=== PATIENT | female | born 1955 | race Caucasian/White ===

== ENCOUNTER 2019-10-13 00:32 | Day surgery (SDC) | payer MEDICARE, OTHER, SELFPAY ==
[2019-10-10 15:56] VITALS: BMI 38.7
--- NOTE | 2019-10-13 10:20 | PM.IMHP ---
H&P: HPI History of Present Illness Chief complaint: diarrhea Narrative: iAram Dela Cruz is a 64 year old female presents today for colonoscopy. Patient reports diarrhea around 30 minutes to 1 hour after eating breakfast. She reports her stools are around 5-6 on the bristol stool scale. She has had CT scan done a few years ago and suggested colitis. She denies any abdominal pains, rectal pains, melena, or hematochezia. Denies any upper GI symptoms. Denies family hx of GI maligancies or IBD. Last colonoscopy was in [address] Thomson and had diverticulosis and hemorrhoids. She also had EGD at that time that was normal. [facility] Past Medical History Medical History (Updated 10/13/19 @ 10:36 by Carmelita Hewitt, RENDERER) Diabetes Dyslipidemia Gout Hypertension Hypomagnesemia Hypothyroid CAMERON (iron deficiency anemia) Surgical History Surgical History (Updated 10/13/19 @ 10:36 by Carmelita Hewitt, RENDERER) History of bunionectomy Hx of bilateral hip replacements Hx of carpal tunnel repair Hx of section Hx of cholecystectomy Hx of colonoscopy Hx of esophagogastroduodenoscopy Family History Family History (Updated 10/13/19 @ 10:37 by Carmelita Hewitt, RENDERER) Mother Uterine cancer Leukemia Hypertension Father Acute myocardial infarction Social History Social History (Updated 10/13/19 @ 10:38 by Carmelita Hewitt, RENDERER) Smoking packs per day: 0.25 Smoking cigarettes per day: 5.0 Years smoked: 2 Smoking pack-years: 0.50 Smoking status: Former smoker Tobacco type: cigarettes Alcohol intake: current Alcohol use details: socially Substance use: never Meds Home Medications and Allergies Home Medications Medication Instructions Recorded Confirmed Type allopurinol 100 mg PO DAILY 10/10/19 10/10/19 History aspirin 81 mg PO DAILY 10/10/19 10/10/19 History atorvastatin 20 mg PO DAILY 10/10/19 10/10/19 History carvedilol 25 mg PO BID 10/10/19 10/10/19 History levothyroxine 50 mcg PO DAILY 10/10/19 10/10/19 History magnesium 400 mg PO DAILY 10/10/19 10/10/19 History metformin 1,000 mg PO DAILY 10/10/19 10/10/19 History Allergies Allergy/AdvReac Type Severity Reaction Status Date / Time meloxicam Allergy Unknown SWELLING Verified 10/13/19 10:20 OF FEET metaxalone Allergy Unknown FACIAL Verified 10/13/19 10:20 SWELLING cyclobenzaprine AdvReac Unknown COGNITIVE Verified 10/13/19 10:20 DEFECT simvastatin AdvReac Unknown MYALGIA Verified 10/13/19 10:20 Exam Const: General: cooperative, healthy appearing, comfortable, alert and awake Nutritional Appearance: average body habitus Orientation/consciousness: oriented to person, oriented to place, oriented to time and patient oriented x3 Limitations: no limitations HENMT: Head: normal to inspection and normocephalic Mouth: Yes Normal oral and palatal mucosa present and Yes moist mucous membranes Neck: Neck: normal visual inspection, supple and no JVD Carotids: no bruits Resp: Effort & Inspection: normal respiratory effort and no respiratory distress Auscultation: clear to auscultation bilaterally Cardio: Rate: regular rate Rhythm: regular rhythm Heart sounds: S1 normal heart sound present, S2 normal heart sound present, no gallops, no murmurs and no rubs GI: Inspection: normal to inspection and obesity GI Palp: No abdominal tenderness and No No hepatosplenomegaly present Percussion: Yes normal to percussion Auscultation: normal bowel sounds Rectal Exam: deferred Skin: General skin exam: normal color Lesions: no lesions Rashes: no rashes Neuro: General: oriented to person, oriented to place, oriented to time, patient oriented x3 and moves all extremities Cognition (Neuro): normal cognition Speech: normal speech Gait exam (Neuro): Normal gait present Extrem: General: normal to inspection Psych: Appearance: grossly normal Mental Status: mental status grossly normal Speech and movement: Normal speech and mo
[2019-10-13 10:21] VITALS: BP 136/89; PULSE 77; RESP 16; TEMP 36.4; O2SAT 98
[2019-10-13] MEDS: LACTATED RINGERS 1,000 ML 150 ML IV CONT (10:31)
[2019-10-13 10:46] LABS: Glucose Point of Care 116 (65-105)
--- NOTE | 2019-10-13 11:01 | WPDANESEPPF ---
Anes - Initial Pre Proc Eval Procedure: Operation Date: 10/13/19 11:00 Proposed Procedures p Colonoscopy - Miki Stephenson DO Date/Time: 10/13/19 11:01 Surgeon: Miki Stephenson DO Pre Op Diagnosis: diarrhea Patient Data Age: 64 Gender: F Height: 5 ft 6 in Weight: 107.9 kg Last Vital Signs Temp 97.6 F 10/13/19 10:21 Pulse 77 10/13/19 10:21 Resp 16 10/13/19 10:21 BP 136/89 10/13/19 10:21 Pulse Ox 98 10/13/19 10:21 Allergies Allergy/AdvReac Type Severity Reaction Status Date / Time meloxicam Allergy Unknown SWELLING Verified 10/13/19 10:20 OF FEET metaxalone Allergy Unknown FACIAL Verified 10/13/19 10:20 SWELLING cyclobenzaprine AdvReac Unknown COGNITIVE Verified 10/13/19 10:20 DEFECT simvastatin AdvReac Unknown MYALGIA Verified 10/13/19 10:20 Home Medications Medication Instructions Recorded Confirmed Type allopurinol 100 mg PO DAILY 10/10/19 10/10/19 History aspirin 81 mg PO DAILY 10/10/19 10/10/19 History atorvastatin 20 mg PO DAILY 10/10/19 10/10/19 History carvedilol 25 mg PO BID 10/10/19 10/13/19 History levothyroxine 50 mcg PO DAILY 10/10/19 10/10/19 History magnesium 400 mg PO DAILY 10/10/19 10/13/19 History metformin 1,000 mg PO DAILY 10/10/19 10/13/19 History Laboratory Tests 10/13/19 10:34 POC Capillary Glucose 116 mg/dl H mg/dl (65-105) Patient hx anesthesia problems: none Family hx anesthesia problems: none PMFSH Past Medical History Medical History (Updated 10/13/19 @ 10:36 by Carmelita Hewitt, METAL SPONGE MAKING MACHINE OPERATOR) Diabetes Dyslipidemia Gout Hypertension Hypomagnesemia Hypothyroid CAMERON (iron deficiency anemia) Surgical History Surgical History (Updated 10/13/19 @ 10:36 by Carmelita Hewitt, METAL SPONGE MAKING MACHINE OPERATOR) History of bunionectomy Hx of bilateral hip replacements Hx of carpal tunnel repair Hx of section Hx of cholecystectomy Hx of colonoscopy Hx of esophagogastroduodenoscopy Family History Family History (Updated 10/13/19 @ 10:37 by Carmelita Hewitt, METAL SPONGE MAKING MACHINE OPERATOR) Mother Uterine cancer Leukemia Hypertension Father Acute myocardial infarction Social History Social History (Updated 10/13/19 @ 10:38 by Carmelita Hewitt, METAL SPONGE MAKING MACHINE OPERATOR) Smoking packs per day: 0.25 Smoking cigarettes per day: 5.0 Years smoked: 2 Smoking pack-years: 0.50 Smoking status: Former smoker Tobacco type: cigarettes Alcohol intake: current Alcohol use details: socially Substance use: never Anes - Eval Final PreProcedure Day of Procedure 10/13/19 11:01 Patient weight: obese Heart: regular rate and rhythm Lungs: clear to auscultation Airway: Mallampati scale class III Neurological: alert and oriented Last oral intake: >/= 8 hours ASA classification: III Emergent: no Anesthetic plan: proceed Anesthesia type and monitoring: general GIVS and standard monitoring Informed Consent: The patient's anesthetic plan and its attendant risks and benefits were discussed with the patient/family/POA. Questions were solicited and answers provided to the satisfaction of the patient/family/POA.
[2019-10-13 11:38] VITALS: BP 111/54; PULSE 79; RESP 22; O2SAT 95
[2019-10-13 11:48] VITALS: BP 103/55; PULSE 79; RESP 17; O2SAT 95
[2019-10-13 11:58] VITALS: BP 121/61; PULSE 69; RESP 15; O2SAT 98
== END 2019-10-13 12:17 | disposition home or self-care (01) ==
PROVIDERS: PCP Internal Medicine; Visit Provider Internal Medicine Gastroenterology
PROC: 0DJD8ZZ Inspection of Lower Intestinal Tract, Via Natural or Artificial Opening Endoscopic (ICD-10-PCS; CPT 45378; principal; 2019-10-13 11:00)
DX: R19.7 Diarrhea, unspecified (principal); K63.5 Polyp of colon; K64.8 Other hemorrhoids; K57.30 Diverticulosis of large intestine without perforation or abscess without bleeding; I10 Essential (primary) hypertension; E78.5 Hyperlipidemia, unspecified; E11.9 Type 2 diabetes mellitus without complications; E03.9 Hypothyroidism, unspecified; D50.9 Iron deficiency anemia, unspecified; M10.9 Gout, unspecified; Z87.891 Personal history of nicotine dependence; Z79.84 Long term (current) use of oral hypoglycemic drugs; Z79.82 Long term (current) use of aspirin; E66.9 Obesity, unspecified; Z68.38 Body mass index [BMI] 38.0-38.9, adult
CPT/HCPCS: 45385; 45380; 88305; J2704; J7120

== ENCOUNTER 2020-12-07 10:15 | Outpatient (CLI) | payer MEDICARE, OTHER, SELFPAY ==
--- NOTE | ~2020-12-07 | XR_ITS ---
EXAMINATION: XR shoulder LT min 2V DATE: 12/07/2020 10:56 INDICATION: Left shoulder pain. TECHNIQUE: 5 views of left shoulder were obtained. COMPARISON: None. FINDINGS: There is superior subluxation of humeral head with narrowing of the subacromial space and a n remodeling of the undersurface of the acromion, consistent with chronic rotator cuff tear with cuff arthropathy. There is severe osteoarthritis of glenohumeral joint and moderate osteoarthritis of acr omioclavicular joint. A calcified left lung nodule and calcified left hilar lymph nodes are consisten t with old granulomatous disease. IMPRESSION: 1. Polyarticular osteoarthritis. 2. Chronic left rotator cuff tear with cuff arthropathy. Reviewed, dictated and finalized at location A.
--- NOTE | ~2020-12-07 | XR_ITS ---
EXAMINATION: XR_CERV2-3V_CR EXAM DATE: 12/07/2020 10:55 INDICATION: Left shoulder pain. Left cervical pain. TECHNIQUE: Cervical spine frontal, lateral, lateral swimmers, and open-mouth odontoid projections. There is no prior study for comparison. FINDINGS: There is moderate disc disease at C5-6 with 2-3 mm anterolisthesis. Moderate disc disease at C7-T1 also with 2-3 mm of anterolisthesis. Mild to moderate disc disease at C6-7 and mild at C4-5. Severe cervical arthropathy, with largest bulky facet joint to left C4-5 level. The odontoid process is intact. The lateral masses of C1 line up with C2. Prevertebral soft tissue and pre-dens space ar e within normal limits. Lung apices are unremarkable. IMPRESSION: 1. Severe cervical arthropathy. Reviewed, dictated and finalized at location A.
[2020-12-07 10:32] LABS: Basophils Absolute Auto 0.05 K/mm3 (0.00-0.10); Basophils Percent Auto 0.8 % (0.0-1.0); Eosinophils Percent Auto 4.8 % (1.0-6.0); Hematocrit 35.3 % (35.0-42.0); Hemoglobin 11.5 g/dL (11.7-13.8); Immature Granulocyte Absolute 0.02 K/mm3 (0.00-0.00); Immature Granulocyte Percent A 0.3 % (0.0-0.0); Lymphocytes Absolute Auto 1.57 K/mm3 (1.10-4.50); Lymphocytes Percent Auto 25.4 % (18.0-42.0); Mean Corpuscular HGB Conc 32.6 g/dL (32.0-36.0); Mean Corpuscular Hemoglobin 28.7 pg (27.0-31.0); Mean Platelet Volume 8.9 fl (9.2-11.8); Monocytes Absolute Auto 0.62 K/mm3 (0.10-0.90); Neutrophils Absolute Auto 3.6 K/mm3 (1.7-7.2); Neutrophils Percent Auto 58.7 % (50.0-70.0); Platelet Count Result 226 K/mm3 (150-420); Red Blood Count 4.01 M/mm3 (4.20-5.40); Red Cell Distribution Width 13.6 % (11.6-14.4); White Blood Count 6.2 K/mm3 (4.8-10.8)
[2020-12-07 11:12] LABS: Alanine Aminotransferase 26 U/L (14-59); Albumin Level 4.2 g/dL (3.4-5.0); Alkaline Phosphatase 53 U/L (46-116); Anion Gap 4 mmol/L (8-16); Aspartate Amino Transferase 12 U/L (15-37); Bilirubin,Total 0.5 mg/dL (0.00-1.00); Blood Urea Nitrogen 27 mg/dL (7-18); CRP 0.8 mg/dL (0.0-0.9); Calcium 10.2 mg/dL (8.5-10.1); Carbon Dioxide 31 mmol/L (21-32); Chloride 102 mmol/L (98-108); Estimated Glomerular Filt Rate 52; Glucose 106 mg/dL (70-99); Osmolality Calculated 289 mOsm/kg (285-295); Potassium 4.8 mmol/L (3.5-5.1); Sodium 137 mmol/L (136-145); Total Protein 7.5 g/dL (6.4-8.2); Uric Acid 7.2 mg/dL (2.6-6.0)
== END 2020-12-07 10:16 | disposition home or self-care (01) ==
LOC: CHSLAB 10:17
PROVIDERS: PCP Nurse Practitioner Family; Visit Provider Nurse Practitioner Family
DX: M25.512 Pain in left shoulder (principal); M25.50 Pain in unspecified joint
CPT/HCPCS: 36415; 72040; 73030; 80053; 84550; 85025; 86140

== ENCOUNTER 2021-01-08 13:00 | Outpatient (RCR) | payer MEDICARE, OTHER, SELFPAY ==
--- NOTE | 2021-01-08 14:11 | PTOPEVAL ---
Thank you for referring Airam Dela Cruz to [facility].? The patient is scheduled to be seen for therapy? ____x/week for ___ weeks. Please review, sign, date and return this plan of care JOSEPH. I agree with and certify that the following plan of care is medically necessary. Referring Physician Date Admitting Provider: Attending Provider: Steven John, Referring Provider: *PT Outpatient Evaluation Start: 01/08/21 13:03 Freq: Status: Active Protocol: Document 01/08/21 13:03 ACR (Rec: 01/08/21 14:11 [id number]) Therapy Assessment Status Assessment Status Assessment Status Evaluation Outpatient Past Medical History Neurological History Hx Neurological Disorders No Significant History Cardiovascular History Hx Cardiac Disorders No Significant History Respiratory History Hx Respiratory Disorders No Significant History Gastrointestinal History Hx Gall Bladder Disease Yes Musculoskeletal History Hx Arthritis Yes Hx Gout Yes Hx Joint Replacement Yes: bilateral hips Hematological History Hx Hematological Disorders No Significant History Endocrine History Hx Diabetes Yes HEENT History Hx HEENT Disorders No Significant History Integumentary History Hx Shingles Yes Reproductive History Hx Reproductive Disorders No Significant History Psychosocial History Hx Psychiatric Disorders No Significant History Pain History History of Any Previous or Ongoing No Significant History Instance of Pain Anesthesia History Hx Anesthesia Reactions No Significant History Evaluation Information Problem Diagnosis LBP Onset 01/01/21 Subjective Information Patient states that she has Query Text:As Reported By Patient/ had back pain for several Family years, but it has flared up quite a bit lately. She states she went to pain management who gave her a back brace and is getting an MRI on 01/10/21. Patient states that the pain is through the anterior thigh. Patient states that standing up from a prolonged sitting position is difficult, walking for prolonged periods of time , standing for a period time are also difficult. Patient is on a muscle relaxer and is taking it at night only because they knock her out.
--- NOTE | 2021-02-12 17:06 | PTOPEVAL ---
Thank you for referring Airam Dela Cruz to [facility].? The patient is scheduled to be seen for therapy? ____x/week for ___ weeks. Please review, sign, date and return this plan of care JOSEPH. I agree with and certify that the following plan of care is medically necessary. Referring Physician Date Admitting Provider: Attending Provider: Steven John, Referring Provider: *PT Outpatient Evaluation Start: 01/08/21 13:03 Freq: Status: Active Protocol: Document 02/12/21 15:06 ACR (Rec: 02/12/21 16:07 ACR [id number]) Therapy Assessment Status Assessment Status Assessment Status Re-evaluation Outpatient Past Medical History Neurological History Hx Neurological Disorders No Significant History Cardiovascular History Hx Cardiac Disorders No Significant History Respiratory History Hx Respiratory Disorders No Significant History Gastrointestinal History Hx Gall Bladder Disease Yes Musculoskeletal History Hx Arthritis Yes Hx Gout Yes Hx Joint Replacement Yes: bilateral hips Hematological History Hx Hematological Disorders No Significant History Endocrine History Hx Diabetes Yes HEENT History Hx HEENT Disorders No Significant History Integumentary History Hx Shingles Yes Reproductive History Hx Reproductive Disorders No Significant History Psychosocial History Hx Psychiatric Disorders No Significant History Pain History History of Any Previous or Ongoing No Significant History Instance of Pain Anesthesia History Hx Anesthesia Reactions No Significant History Evaluation Information Problem Diagnosis LBP and B knee pain Onset 01/01/21 Subjective Information Patient reports that her back Query Text:As Reported By Patient/ is so much better and is Family feeling more confident with holding her new grandchild while standing and walking. She states she is able to do everything she needs to do and her back does not bother her. She states she has not taken any muscle relaxers in awhile but will occasionally take a tylenol but that is for her knees. Patient states her knees have been bothering her for quite some time and she is trying to avoid surgery. She states she begins 5 weeks of injections
== END 2021-03-22 17:32 | disposition home or self-care (01) ==
LOC: CHSPT 13:00
PROVIDERS: PCP Internal Medicine; Visit Provider Anesthesiology Pain Medicine
DX: M54.5 Low back pain (principal); M25.562 Pain in left knee; M25.561 Pain in right knee; M19.90 Unspecified osteoarthritis, unspecified site
CPT/HCPCS: 97014; 97110; 97112; 97161; 97164; 97530; G0283

== ENCOUNTER → 2021-01-10 10:43 | Outpatient (CLI) | payer MEDICARE, OTHER, SELFPAY ==
--- NOTE | ~2021-01-10 | MR_ITS ---
EXAMINATION: MR lumbar spine wo con DATE: 01/10/2021 11:22 INDICATION: Lumbago. TECHNIQUE: Magnetic resonance imaging (MRI) of the lumbar spine was performed without intravenous con trast. Sequences included sagittal T2-weighted FSE, sagittal T2-weighted FS FSE, sagittal T1-weighted FSE, and axial T2-weighted FSE. COMPARISON: Lumbar spine radiographs 09/10/2017 FINDINGS: There is 18 degrees levoscoliosis of lumbar spine. There is 3 mm anterolisthesis of L4 on L 5. Vertebral body heights are normal. There is severely decreased disc height at T11-T12, L2-L3, and L3-L4 and mildly decreased disc height at L4-L5 and L5-S1 with endplate remodeling. The distal spinal cord signal intensity is normal. The conus medullaris is at L1-L2. The following disc levels are spe cifically discussed: L1-L2: The disc does not extend beyond the endplate margin. There is severe right and moderate left f acet joint osteoarthritis. There is mild right neural foraminal stenosis. There is no central canal s tenosis. L2-L3: The disc is bulging and has an annular fissure. There is severe bilateral facet joint osteoart hritis. There is moderate right and mild left neural foraminal stenosis. There is mild central canal stenosis. L3-L4: The disc is bulging and has an annular fissure. There is severe bilateral facet joint osteoart hritis. There is moderate bilateral neural foraminal stenosis. There is moderate central canal stenos is. L4-L5: The disc is bulging and has an annular fissure. There is severe bilateral facet joint osteoart hritis. There is mild bilateral neural foraminal stenosis. There is mild central canal stenosis. L5-S1: The disc is bulging and has an annular fissure. There is moderate right and severe left facet joint osteoarthritis. There is mild bilateral neural foraminal stenosis. There is mild central canal stenosis. IMPRESSION: 1. Severe lumbar spondylosis. 2. Lumbar levoscoliosis. Reviewed, dictated and finalized at location B.
== END ==
PROVIDERS: PCP Internal Medicine; Visit Provider Anesthesiology Pain Medicine
DX: M54.5 Low back pain (principal); M47.816 Spondylosis without myelopathy or radiculopathy, lumbar region; M41.86 Other forms of scoliosis, lumbar region
CPT/HCPCS: 72148

== ENCOUNTER 2022-05-06 13:48 | Outpatient (CLI) | payer MEDICARE, SELFPAY ==
[2022-05-06 15:19] LABS: Basophils Absolute Auto 0.1 K/mm3 (0.0-0.1); Basophils Percent Auto 0.5 % (0.2-1.2); Eosinophils Absolute Auto 0.2 K/mm3 (0-0.3); Eosinophils Percent Auto 2.1 % (0-4.4); Hematocrit 34.9 % (37.0-47.0); Hemoglobin 11.2 g/dL (12.0-15.0); Immature Granulocyte Absolute 0.04 K/mm3 (0.00-0.031); Immature Granulocyte Percent A 0.3 % (0-0.5); Lymphocytes Absolute Auto 2.31 K/mm3 (0.9-3.2); Lymphocytes Percent Auto 19.8 % (18.3-44.2); Mean Corpuscular HGB Conc 32.1 g/dl (32-36); Mean Corpuscular Hemoglobin 28.5 pg (26-34); Mean Corpuscular Volume 88.8 fl (80-100); Monocytes Absolute Auto 1.1 K/mm3 (0.1-0.6); Monocytes Percent Auto 9.8 % (2.6-8.5); Neutrophils Absolute Auto 7.9 K/mm3 (1.3-6.7); Neutrophils Percent Auto 67.5 % (45.5-73.1); Platelet Count Result 382 k/mm3 (150-375); Red Blood Count 3.93 M/mm3 (4.2-5.4); White Blood Count 11.7 K/mm3 (4.5-10.0)
[2022-05-06 15:27] LABS: Urine Cotinine NEGATIVE
[2022-05-06 15:31] LABS: Albumin Level 4.8 g/dL (3.5-5.1); Anion Gap 16 mmol/L (8-16); Blood Urea Nitrogen 19 mg/dL (7-17); Calcium 9.9 mg/dL (8.4-10.2); Carbon Dioxide 29 mmol/L (22-30); Chloride 96 mmol/L (98-107); Estimated Glomerular Filt Rate > 60; Glucose 105 mg/dL (65-110); Potassium 4.4 mmol/L (3.4-5.0); Sodium 141 mmol/L (137-145)
[2022-05-06 15:46] LABS: Hemoglobin A1C 6.3 % (<5.7)
== END 2022-05-06 13:49 | disposition home or self-care (01) ==
LOC: ANHSURGERY 13:53
PROVIDERS: PCP Internal Medicine; Visit Provider Orthopaedic Surgery
DX: Z01.818 Encounter for other preprocedural examination (principal); M17.11 Unilateral primary osteoarthritis, right knee
CPT/HCPCS: 80048; 80307; 82040; 83036; 85025; 87070

== ENCOUNTER 2022-06-24 15:24 | Outpatient (CLI) | payer MEDICARE, SELFPAY ==
--- NOTE | ~2022-06-24 | XR_ITS ---
XR wrist LT min 3V DATE: 06/24/2022 15:50 INDICATION: Pain of left wrist and base of thumb for one week TECHNIQUE: 4 views of left wrist COMPARISON: None FINDINGS: Chondrocalcinosis is noted at the triangular cartilage, wrist joint and second and third me tacarpophalangeal joints. Severe joint space target the triscaphe joint. Severe joint space narrowing and very prominent hypert rophic spurring at the first carpometacarpal joint consistent with severe osteoarthritis. There is osteoarthritis at the first and second metacarpophalangeal joints and prominent osteophytic change at the interphalangeal joint of the first digit. No fracture or dislocation, periosteal reaction or bone destruction is detected. IMPRESSION: Chondrocalcinosis of the triangular cartilage, wrist and second and third metacarpophalan geal joints Polyarticular osteoarthritis, particularly severe at the first carpometacarpal joint and interphalang eal joint of the first digit Reviewed, dictated and finalized at location A. IMPRESSION: Chondrocalcinosis of the triangular cartilage, wrist and second and third metacarpophalangeal joints Polyarticular osteoarthritis, particularly severe at the first carpometacarpal joint and interphalangeal joint of the first digit
== END 2022-06-24 15:25 | disposition home or self-care (01) ==
LOC: CHSIMG 15:28
PROVIDERS: PCP Internal Medicine; Visit Provider Internal Medicine
DX: M25.532 Pain in left wrist (principal); M79.645 Pain in left finger(s)
CPT/HCPCS: 73110

== ENCOUNTER 2022-06-30 00:43 | Day surgery (SDC) | payer MEDICARE, SELFPAY ==
[2022-05-06 13:42] VITALS: BP 150/82; PULSE 66; RESP 18; TEMP 36.9; O2SAT 96; BMI 38.0
--- NOTE | 2022-05-06 13:45 | PC.NURSE ---
Addendum entered by Alia Handy RN 05/06/22 14:39: PT AWARE THAT SHE CAN TAKE TRAMADOL OR TYLENOL IF NEEDED FOR PAIN DAY OF SURGERY Original Note: PRE-OP INSTRUCTIONS, PLEASE READ CAREFULLY Report to the Outpatient Waiting Room, entrance under the green pavilion located off [facility], at time _1000_ on date _05/21/22_. OR Time: _1200_. PACK A SMALL OVERNIGHT BAG AND LEAVE IN THE CAR ALONG WITH YOUR WALKER. - You and your visitor will be asked to self-screen and do not enter if you have any COVID symptoms. - A mask is required within the hospital. - Only one visitor and NO children visitors are allowed at this time. - The patient visitor is requested to leave or wait in car when not with patient due to restrictions. - VISITING HOURS 10AM-8PM, PARK IN FRONT PARKING LOT AND USE MAIN HOSPITAL ENTRANCE Patients may have clear liquids (water, carbonated beverages, clear teas, apple juice) until 3 hours prior to surgery (0900 AM) with a maximum of 20 ounces. - No food from midnight until time of surgery Take the following medications with a SIP of water the morning of surgery: _CARVEDILOL, LEVOTHYROXINE, PREGABALIN _ Medications to discontinue per physician _ASPIRIN PER DR. FOFANA'S INSTRUCTIONS, DICLOFENAC 7 DAYS PRIOR TO SURGERY_, Date to take last dose 05/13/22_ Medications to discontinue per ANESTHESIA - _MULTIVITAMIN, TURMERIC 3 DAYS PRIOR TO SURGERY, Date to take last dose 05/17/22 Please no make-up, nail mozambican, hairspray, perfume, deodorant, or body powder the day of surgery. No jewelry (including any body piercings) or valuables the day of surgery, leave them at home. Please take a shower or bath the night before, or the morning of, surgery with an antibacterial soap. Wear comfortable, loose fitting clothing. Children are encouraged to wear pajamas. - Jewelry must be removed prior to entering the operating room. Rings and piercings that are not removed may be cut off. - The hospital will not accept responsibility for valuables. - Please leave all valuables, including medications, at home the day of surgery. If you are going home after surgery, a licensed bulk driver must drive you home. - NO public transportation without another adult. - We recommend that an adult stay with you for 24 hours following discharge. - We also recommend that you do not drive, make important decision, drink alcoholic beverages, or take any drugs that were not prescribed by your health care provider for at least 24 hours after your discharge time. Follow any additional instructions given to you from your surgeon. TOTAL JOINT CLASS 05/07/22 @ 1000AM, [facility], PARK IN FRONT PARKING LOT AND USE MAIN ENTRANCE - LOWER LEVEL If you or anyone in your household have experienced Covid symptoms in the past week, please notify your surgeon or the nurse liaison at the phone number below for possible testing. Instructions given to ___PT and asked if any additional questions and then verbalized understanding. Patient advised to call surgeon office or pre surgery nurse liaison [phone] if any additional questions.
[2022-06-17 09:49] VITALS: BMI 37.8
--- NOTE | 2022-06-17 10:07 | PC.NURSE ---
Report to the Outpatient Waiting Room, entrance under the green pavilion located off [facility], at time __6:00AM on date _06/30/22 . Planned Procedure Time: __7:30AM . Time changes happen often and if your time is changed the preop area will call you the afternoon before. - You and your visitor will be asked to self-screen and do not enter if you have any COVID symptoms. - We encourage only one visitor and NO visitors under age 16 are allowed at this time. Your visitor will receive communication by the phone number that is given day of service. - The patient visitor is requested to social distance or may leave the building when not with patient due to restrictions. - A mask is required within the hospital. Patients may have clear liquids (water, carbonated beverages, clear teas, apple juice) until 3 hours prior to surgery with a maximum of 20 ounces. - No food from midnight until time of surgery Take the following medications with a SIP of water the morning of surgery: __CARVEDILOL, LEVOTHYROXINE, PREGABALIN & TRAMADOL NEEDED____ Medications to discontinue per physician ____HOLD DICLOFENAC 7 DAYS PRE-OP PER DR FOFANA- LAST DOSE 06/23/22. PT STATES NO HOLDING ASPIRIN PER DR FOFANA. HOLD ALL VITAMINS/SUPPLEMENTS 3 DAYS PRE-OP- LAST DOSE 06/27/22 Please no make-up, nail north korean, hairspray, perfume, deodorant, or body powder the day of surgery. No jewelry (including any body piercings) or valuables the day of surgery, leave them at home. Please take a shower or bath the night before, or the morning of, surgery with an antibacterial soap. Wear comfortable, loose fitting clothing. Children are encouraged to wear pajamas. - Jewelry must be removed prior to entering the operating room. Rings and piercings that are not removed may be cut off. - The hospital will not accept responsibility for valuables. - Please leave all valuables, including medications, at home the day of surgery. If you are going home after surgery, a licensed straddle truck driver must drive you home. - NO public transportation without another adult. - We recommend that an adult stay with you for 24 hours following discharge. - We also recommend that you do not drive, make important decision, drink alcoholic beverages, or take any drugs that were not prescribed by your health care provider for at least 24 hours after your discharge time. Follow any additional instructions given to you from your surgeon. If you or anyone in your household have experienced Covid symptoms in the past week, please notify your surgeon or the nurse liaison at the phone number below for possible testing. Telephone instructions given to __PATIENT and asked if any additional questions and then verbalized understanding. Patient advised to call surgeon office or pre surgery nurse liaison [phone] if any additional questions.
--- NOTE | 2022-06-27 12:25 | PM.IMHP ---
H&P: HPI History of Present Illness Date/Time: 06/27/22 12:25 Chief Complaint: Right knee DJD Narrative: 66-year-old female patient of Dr. Toth who presents today for a right total knee arthroplasty. Patient been having pain in both of her knees right greater than left for several years. She has been on anti-inflammatories. She has had cortisone injection as well as viscosupplementation injections in her knees in the past. Last injections were in October this year. She had minimal improvement of her symptoms. Patient has advanced medial compartment osteoarthritis in the right knee. She feels this point she would like to proceed with total knee arthroplasty rather continuing nonsurgical treatment. Review of Systems Review of Systems: All systems reviewed & are unremarkable except as noted in HPI and below PMFSH Past Medical History Medical History Diabetes Dyslipidemia Gout Hypertension Hypomagnesemia Hypothyroid CAMERON (iron deficiency anemia) Surgical History Surgical History History of bunionectomy Hx of bilateral hip replacements Hx of carpal tunnel repair Hx of section Hx of cholecystectomy Hx of colonoscopy Hx of esophagogastroduodenoscopy Family History Family History Mother Uterine cancer Leukemia Hypertension Father Acute myocardial infarction Social History Social History Smoking packs per day: 0.5 Smoking cigarettes per day: 10.0 Years smoked: 2 Smoking pack-years: 1.00 Smoking status: Former smoker Tobacco type: cigarettes Second hand tobacco smoke exposure: No Smoking end date: 02/28/79 Additional smoking assessment comments: PT DENIES ALL FORMS OF TOBACCO USE Alcohol intake: current Alcohol use details: socially Substance use: never Substance use type: does not use Additional living arrangements comments: HUSB Spiritual care concerns: No Meds Home Medications and Allergies Home Medications Medication Instructions Recorded Confirmed Type allopurinol 100 mg tablet 100 mg PO DAILY 10/10/19 06/17/22 History aspirin 81 mg tablet,delayed 81 mg PO DAILY 10/10/19 06/17/22 History release atorvastatin 20 mg tablet 20 mg PO DAILY 10/10/19 06/17/22 History carvedilol 25 mg tablet 25 mg PO BID 10/10/19 06/17/22 History levothyroxine 50 mcg capsule 50 mcg PO DAILY 10/10/19 06/17/22 History magnesium 200 mg tablet 400 mg PO TID 10/10/19 06/17/22 History metformin 500 mg tablet,extended 1,000 mg PO BID 10/10/19 06/17/22 History release 24 hr acetaminophen 500 mg tablet 1,000 mg PO QID PRN Pain 05/06/22 06/17/22 History cyanocobalamin (vitamin B-12) 1,000 mcg PO QAM 05/06/22 06/17/22 History 1,000 mcg tablet diclofenac sodium 75 mg 1 mg PO BID PRN Pain 05/06/22 06/17/22 History tablet,delayed release ferrous sulfate 325 mg (65 mg 325 mg PO QAM 05/06/22 06/17/22 History iron) tablet multivitamin 1 tablet PO QAM 05/06/22 06/17/22 History pregabalin 100 mg capsule 100 mg PO BID 05/06/22 06/17/22 History psyllium 1 packet PO QAM 05/06/22 06/17/22 History tramadol 50 mg tablet 50 mg PO Q6H PRN Pain 05/06/22 06/17/22 History turmeric root extract 500 mg tablet 500 mg PO QAM 05/06/22 06/17/22 History Allergies Allergy/AdvReac Type Severity Reaction Status Date / Time meloxicam Allergy Unknown SWELLING Verified 06/17/22 09:40 OF FEET metaxalone Allergy Unknown FACIAL Verified 06/17/22 09:40 SWELLING cyclobenzaprine AdvReac Unknown COGNITIVE Verified 06/17/22 09:40 DEFECT simvastatin AdvReac Unknown MYALGIA Verified 06/17/22 09:40 Exam Narrative: 66-year-old female alert pleasant. She is 5 ft 3 and 227 lb her BMI is 40.2. Her right knee range of motion is from 7-90 degrees. She has a moderate effusion in th
[2022-06-30] VITALS (15 sets, daily range): BP systolic 121–158; BP diastolic 66–82; PULSE 56–74; RESP 10–18; TEMP 36.3–36.7; O2SAT 93–100
--- NOTE | ~2022-06-30 | XR_ITS ---
EXAMINATION: XR knee RT 2V DATE: 06/30/2022 10:59 INDICATION: Right knee arthroplasty. Postop. TECHNIQUE: 2 views of right knee were obtained. COMPARISON: None. FINDINGS: There is a total right knee arthroplasty with patellar resurfacing in near-anatomic alignme nt. No fracture. There is a 6 cm sclerotic lesion in femoral metadiaphysis in a pattern of chondroid matrix. There are well-corticated erosions at the proximal tibiofibular joint. There is gas in the tristan int and soft tissues, consistent with recent surgery. IMPRESSION: 1. Total right knee arthroplasty in near-anatomic alignment. 2. Sclerotic lesion in femoral metadiaphysis, which may be an enchondroma or osteonecrosis. 3. Well-corticated erosions at the proximal tibiofibular joint. Reviewed, dictated and finalized at location A. IMPRESSION: 1. Total right knee arthroplasty in near-anatomic alignment. 2. Sclerotic lesion in femoral metadiaphysis, which may be an enchondroma or os teonecrosis. 3. Well-corticated erosions at the proximal tibiofibular joint.
[2022-06-30] MEDS: ACETAMINOPHEN 500 MG TABLET 1000 MG PO ×3 (06:17→18:23)
[2022-06-30] MEDS: LACTATED RINGERS 1,000 ML 30 ML IV CONT ×2 (06:30→11:35)
[2022-06-30 06:35] LABS: Glucose Point of Care 130 mg/dl (65-105)
[2022-06-30] MEDS: TRANEXAMIC ACID 1,000MG/ISO100 1,000 MG/100 ML BAG 200 MG IVPB (07:07)
--- NOTE | 2022-06-30 07:08 | WPDANESEPPF ---
Anes - Initial Pre Proc Eval Procedure: Operation Date: 06/30/22 07:30 Proposed Procedures p Right Total Knee Arthroplasty - David Lamas MD Date/Time: 06/30/22 07:08 Surgeon: David Lamas MD Pre Op Diagnosis: oa right knee Patient Data Age: 66 Gender: F Height: 1.63 m Weight: 101.5 kg Last Vital Signs Temp 36.3 C L 06/30/22 06:44 Pulse 74 06/30/22 06:44 Resp 16 06/30/22 06:44 BP 151/82 H 06/30/22 06:44 Pulse Ox 97 06/30/22 06:44 O2 Del Method Room Air 06/30/22 06:44 Allergies Allergy/AdvReac Type Severity Reaction Status Date / Time meloxicam Allergy Unknown SWELLING Verified 06/30/22 06:01 OF FEET metaxalone Allergy Unknown FACIAL Verified 06/30/22 06:01 SWELLING cyclobenzaprine AdvReac Unknown COGNITIVE Verified 06/30/22 06:01 DEFECT simvastatin AdvReac Unknown MYALGIA Verified 06/30/22 06:01 Home Medications Medication Instructions Recorded Confirmed Type allopurinol 100 mg tablet 100 mg PO DAILY 10/10/19 06/30/22 History aspirin 81 mg tablet,delayed 81 mg PO DAILY 10/10/19 06/30/22 History release atorvastatin 20 mg tablet 20 mg PO DAILY 10/10/19 06/30/22 History carvedilol 25 mg tablet 25 mg PO BID 10/10/19 06/30/22 History levothyroxine 50 mcg capsule 50 mcg PO DAILY 10/10/19 06/30/22 History magnesium 200 mg tablet 400 mg PO TID 10/10/19 06/30/22 History metformin 500 mg tablet,extended 1,000 mg PO BID 10/10/19 06/30/22 History release 24 hr acetaminophen 500 mg tablet 1,000 mg PO QID PRN Pain 05/06/22 06/30/22 History cyanocobalamin (vitamin B-12) 1,000 mcg PO QAM 05/06/22 06/30/22 History 1,000 mcg tablet diclofenac sodium 75 mg 1 mg PO BID PRN Pain 05/06/22 06/30/22 History tablet,delayed release ferrous sulfate 325 mg (65 mg 325 mg PO QAM 05/06/22 06/30/22 History iron) tablet multivitamin 1 tablet PO QAM 05/06/22 06/30/22 History pregabalin 100 mg capsule 100 mg PO BID 05/06/22 06/30/22 History psyllium 1 packet PO QAM 05/06/22 06/30/22 History tramadol 50 mg tablet 50 mg PO Q6H PRN Pain 05/06/22 06/30/22 History turmeric root extract 500 mg tablet 500 mg PO QAM 05/06/22 06/30/22 History Laboratory Tests 06/30/22 06/30/22 06:29 06:32 POC Capillary Glucose 130 mg/dl H mg/dl (65-105) Blood Type Pending Antibody Screen Pending Patient hx anesthesia problems: none Family hx anesthesia problems: none Results Review: All pre-operative results and documents have been reviewed as part of the pre-operative evaluation. [facility] Past Medical History Medical History Diabetes Dyslipidemia Gout Hypertension Hypomagnesemia Hypothyroid CAMERON (iron deficiency anemia) Surgical History Surgical History History of bunionectomy Hx of bilateral hip replacements Hx of carpal tunnel repair Hx of section Hx of cholecystectomy Hx of colonoscopy Hx of esophagogastroduodenoscopy Family History Family History Mother Uterine cancer Leukemia Hypertension Father Acute myocardial infarction Social History Social History Smoking packs per day: 0.25 Smoking cigarettes per day: 5.0 Years smoked: 2 Smoking pack-years: 0.50 Smoking status: Former smoker Tobacco type: cigarettes Second hand tobacco smoke exposure: No Smoking end date: 02/28/79 Additional smoking assessment comments: PT DENIES ALL FORMS OF TOBACCO USE Alcohol intake: current Alcohol use details: socially Substance use: never Substance use type: does not use Living arrangements: with family Additional living arrangements comments: HUSB Spiritual care concerns: No Anes - Eval Final PreProcedure Day of Procedure 06/30/22 07:08 Patient weight: obese Heart: reg
--- NOTE | 2022-06-30 07:15 | WPDHPUPDATE1 ---
History and Physical Update Update Date/Time: 06/30/22 07:15 History and Physical has been reviewed, including an updated exam of the patient. There are NO changes in the patient's condition. Risks, benefits, and alternatives have been discussed and questions answered. Patient agrees to proceed with procedure.
[2022-06-30] MEDS: ceFAZolin 2 GM/D5W 50 ML 2 GM/50 ML BAG IVPB (07:26)
[2022-06-30] MEDS: ceFAZolin SODIUM 1 GM VIAL 3 GM (08:09)
[2022-06-30] MEDS: TRANEXAMIC ACID 1,000 MG/10 ML AMPUL 1000 MG IV PUSH (10:03)
[2022-06-30] MEDS: ceFAZolin SODIUM 1 GM VIAL 2 GM IV PUSH (10:03)
--- NOTE | 2022-06-30 10:57 | W.PM.PROC2 ---
Procedure Note - Detailed Date of Procedure 06/30/22 Pre-op Diagnosis oa right knee, obesity Post-op Diagnosis Same Procedure Performed Right total knee arthroplasty Surgeon David Lamas MD Leather Colorer Rena Description of Procedure Patient was brought to the operating room and general anesthesia was administered. The right leg prepped draped usual fashion. She received 2 g of Ancef weight based vancomycin 1 g of tranexamic acid preoperatively. There is extra difficulty with the procedure due to her BMI of approximately 40. This added approximately 40 minutes of operative time to procedure. Under anesthesia she had range of motion from 7? to 100? of flexion with a hard stop at both extremes. Limb was exsanguinated tourniquet elevated to 275 mm mmHg. A 7 in longitudinal incision was made a standard parapatellar arthrotomy utilized. The extensor mechanism was stuck down with remarkably tough and thick white synovial scar tissue. A careful excision of this tissue was performed to as a synovectomy to free quadriceps adhesions. Infrapatellar fat pad was excised. The patella measured 22 mm in thickness. It had mild to moderate cartilage thinning centrally. Large osteophytes were present which were debrided. I deferred resecting the patella for resurfacing at this time as I was unsure of the quality of her bone. There were massive osteophytes around the anterolateral soup for a trochlear and anteromedial medial femur which were removed. A guide josselyn was inserted down the femoral canal after aspiration of canal contents using the 5 degree valgus cutting bushing 9 mm of bone removed the distal femur. This removed 9 laterally as well because of the wear medially. Next the tibia was cut. We tried to make a skim cut off the low point of the medial tibial plateau. There is eburnation and wear medially and posteromedially. There was no remnant of the ACL remaining. Initial cut was a little too conservative and an additional 2 mm of bone was then removed at this time. Bone density medially was extremely sclerotic. Central cancellous bone and cancellous bone on the lateral plateau was average density. Meniscal remnants were excised and a and the PCL was recessed. Flexion gap measured 9 mm medially and 11 mm laterally. Femoral sizing glide guide was applied to the femur posterior referencing pinholes placed at 3? of external rotation which matched Whitesides line. The size 65 vanguard cutting block was applied AP and chamfer cuts were made and we had a line to line fit medial to lateral and anterior to posterior. With the 10 CR trial the knee almost came out to full extension. There was ample play medially in at 90? of flexion less than laterally. Tibia was sized to a 71 which fit line to line anteromedial lateral posterolateral. We could see this time that there was a small marginal fracture of the medial osteophyte that propagated a few mm into the medial plateau. I suspect this occurred due to the skim cut on the extremely dense surface bone of this margin with adjacent much softer cancellous bone which failed. It was attached to the overlying deep and superficial medial collateral ligament and was stable and therefore left alone. The 71 was punched. We trialed with a 10 insert and at 90? of flexion we had about 3 mm of medial opening less than 1 mm of lateral opening and I felt this was suboptimal. The knee came out to full extension with 2-3 mm of medial and lateral opening both. I should mention that prior to punching the tibia we did apply the femoral trial and removed the very large posterior femoral osteophytes which were present both medially and laterally but I did not perform a central capsule released from the femur. We assessed the alignment of the tibia and I felt that we were in very slight varus which gave us the opportunity to improve the flexion gap asymmetry and we applied the tibial cutting guide and carefully removed an additional m
--- NOTE | 2022-06-30 11:09 | PM.OP ---
Procedure Note - Brief Procedure Note - Brief Date of procedure: 06/30/22 <SRINIVASA Purcell - Last Filed: 06/30/22 11:10> 06/30/22 <David Lamas MD - Last Filed: 06/30/22 11:16> Pre-op diagnosis: oa right knee <SRINIVASA Purcell - Last Filed: 06/30/22 11:10> Right knee DJD <SRINIVASA Purcell - Last Filed: 06/30/22 11:10> Procedure performed: right total knee arthroplasty <SRINIVASA Purcell - Last Filed: 06/30/22 11:10> Description of procedure: 66-year-old female underwent right total knee arthroplasty 06/30. I was involved in Procedure including positioning patient on the OR table. I 1st assisted through the time surgery as well as wound closure. Assisting patient recovery. Total time spent was 3-1/2 hours <SRINIVASA Purcell - Last Filed: 06/30/22 11:10> Surgeon: SRINIVASA Purcell <SRINIVASA Purcell - Last Filed: 06/30/22 11:10>
[2022-06-30] MEDS: fentaNYL CITRATE INJ (*CRX) 100 MCG/2 ML VIAL 25 MCG IV PUSH ×4 (11:15→12:12)
[2022-06-30 11:29] LABS: Glucose Point of Care 169 mg/dl (65-105)
--- NOTE | 2022-06-30 12:29 | SUR.PHASEI ---
1220: RN tried to give report to floor RN. Floor RN is busy with another patient and has to call back.
--- NOTE | 2022-06-30 12:52 | ADMGEN ---
This patient, Airam Dela Cruz, was admitted to 2 Medical Room 244-. Patient/family oriented to hospital policies and general routines including ID bracelet, bed and alarms, visiting hours, pain management, procedures, bathroom and other care routines, personal items, smoking policy, room service/diet, and visiting hours. Information on how to activate the Rapid Response Team has been discussed. Patient/Family are encouraged to report perceived risks to care and to ask questions if they do not understand what they are told or what they should do.
[2022-06-30] MEDS: SODIUM CHLORIDE 0.9% IV 1,000 ML 125 ML IV CONT (13:37)
[2022-06-30] MEDS: oxyCODONE HCL (*CRX) 5 MG TAB IR PO ×3 (13:37→21:41)
[2022-06-30] MEDS: PREGABALIN (*CRX) 50 MG CAPSULE 100 MG PO (16:47)
[2022-06-30] MEDS: carvediloL 25 MG TABLET PO (16:47)
[2022-06-30] MEDS: SENNA/DOCUSATE SODIUM TABLET 2 TAB PO (16:47)
[2022-06-30] MEDS: MAGNESIUM OXIDE 400 MG TABLET PO (16:48)
[2022-06-30] MEDS: metFORMIN HCL XR 500 MG TAB.SR.24H 1000 MG PO (16:48)
[2022-06-30] MEDS: CYANOCOBALAMIN 1,000 MCG TABLET 1000 MCG PO (16:49)
[2022-06-30 17:39] LABS: Glucose Point of Care 140 mg/dl (65-105)
[2022-06-30] MEDS: allopurinoL 100 MG TABLET PO (18:22)
--- NOTE | 2022-06-30 20:00 | WPDCN ---
Assessment and Plan Assessment and plan (1) Osteoarthritis of right knee: Code(s): M17.11 - Unilateral primary osteoarthritis, right knee Status: Acute Assessment and Plan: Status post right knee arthroplasty, postoperative day 0. Wound care, pain control, DVT prophylaxis deferred to Dr. Lamas. (2) Type 2 diabetes mellitus: Code(s): E11.9 - Type 2 diabetes mellitus without complications Status: Acute Assessment and Plan: Initiate sliding scale insulin, Accu-Cheks, and hypoglycemic protocol. Check hemoglobin A1c. Resume metformin on discharge. (3) Iron deficiency anemia: Code(s): D50.9 - Iron deficiency anemia, unspecified Status: Acute Assessment and Plan: Continue iron supplementation. Check H&H in a.m.. (4) Hypothyroidism: Code(s): E03.9 - Hypothyroidism, unspecified Status: Acute Assessment and Plan: Continue levothyroxine. (5) Hypertension: Code(s): I10 - Essential (primary) hypertension Status: Acute Assessment and Plan: Blood pressures were reviewed and they are stable postoperatively. Antihypertensives will be reviewed and resumed as appropriate. (6) Dyslipidemia: Code(s): E78.5 - Hyperlipidemia, unspecified Status: Acute Assessment and Plan: Continue statin and check LFTs in a.m.. Plan Thank you for allowing us to participate in this patient's care. Please do not hesitate to contact us with any questions. Supervising physician for this medical consultation is Dr. Alberto Maynard. HPI Data of Consult Date/Time: 06/30/22 20:00 Requesting Physician: David Lamas MD Consult Narrative Reason for consult: Post operative medical management. Narrative: This is a 66-year-old female with osteoarthritis of the right knee status post right total knee arthroplasty whom the hospitalist service has been consulted for help managing her medical conditions postoperatively. In addition to arthritis, her medical history is significant for type 2 diabetes mellitus with a recent A1c of 6.3%, hypertension, hyperlipidemia, gout, and iron deficiency anemia. She has had longstanding pain in both knees, right greater than left, and unfortunately conservative outpatient treatment has not provided her with longstanding relief and she elected for replacement today. Her surgery was performed under general anesthesia. No immediate complications were documented and her estimated blood loss was 300 mL. At the time of my evaluation She is resting comfortably and she states that her pain is well controlled. She has been up to the chair and was doing quite well with that. Appetite has been good and she ate dinner without issue. She denies postoperative fever, chills, chest pain, shortness a breath, nausea, vomiting. On discharge plans on going home and her daughter was a nurse is going to be helping her out for a bit. [facility] Past Medical History Medical History (Updated 06/30/22 @ 13:52 by Paula Phelan PA-C) Dyslipidemia Gout Hypertension Hypothyroidism Iron deficiency anemia Type 2 diabetes mellitus Surgical History Surgical History History of arthroplasty of right knee History of bunionectomy Hx of bilateral hip replacements Hx of carpal tunnel repair Hx of section Hx of cholecystectomy Hx of colonoscopy Hx of esophagogastroduodenoscopy Family History Family History Mother Uterine cancer Leukemia Hypertension Father Acute myocardial infarction Social History Social History (Updated 06/30/22 @ 13:50 by Paula Phelan PA-C) Social History: Surrogate medical decision maker: Josias Dela Cruz, spouse. Code status: Full code. Smoking packs per day: 0.25 Smoking cigarettes per day: 5.0 Years smoked: 2 Smoking pack-years: 0.50 S
[2022-06-30] MEDS: FAMOTIDINE 20 MG TABLET PO (21:41)
[2022-06-30] MEDS: ATORVASTATIN 20 MG TABLET PO (21:41)
[2022-07-01 00:01] LABS: Glucose Point of Care 222 mg/dl (65-105)
[2022-07-01] MEDS: ACETAMINOPHEN 500 MG TABLET 1000 MG PO ×3 (00:23→12:24)
[2022-07-01] MEDS: oxyCODONE HCL (*CRX) 5 MG TAB IR PO ×4 (00:24→12:24)
[2022-07-01 02:30] VITALS: BP 116/54; PULSE 68; RESP 16; TEMP 36.1; O2SAT 93
[2022-07-01 05:05] LABS: Basophils Percent Auto 0.2 % (0.2-1.2); Eosinophils Percent Auto 0.1 % (0-4.4); Hematocrit 26.7 % (37.0-47.0); Hemoglobin 8.4 g/dL (12.0-15.0); Immature Granulocyte Absolute 0.03 K/mm3 (0.00-0.031); Immature Granulocyte Percent A 0.3 % (0-0.5); Lymphocytes Percent Auto 10.9 % (18.3-44.2); Mean Corpuscular HGB Conc 31.5 g/dl (32-36); Mean Corpuscular Hemoglobin 27.6 pg (26-34); Mean Corpuscular Volume 87.8 fl (80-100); Mean Platelet Volume 9.7 fl (7.4-10.4); Monocytes Absolute Auto 0.9 K/mm3 (0.1-0.6); Monocytes Percent Auto 8.8 % (2.6-8.5); Neutrophils Absolute Auto 8.1 K/mm3 (1.3-6.7); Neutrophils Percent Auto 79.7 % (45.5-73.1); Platelet Count Result 203 k/mm3 (150-375); Red Blood Count 3.04 M/mm3 (4.2-5.4); Red Cell Distribution Width 14.4 % (11.5-14.5); White Blood Count 10.1 K/mm3 (4.5-10.0)
[2022-07-01 05:12] LABS: Alanine Aminotransferase 16 U/L (6-35); Albumin Level 3.6 g/dL (3.5-5.1); Alkaline Phosphatase 43 U/L (38-126); Aspartate Amino Transferase 17 U/L (14-36); Bilirubin,Total 0.2 mg/dL (0.2-1.3)
[2022-07-01 05:27] LABS: Anion Gap 12 mmol/L (8-16); Blood Urea Nitrogen 21 mg/dL (7-17); Calcium 7.9 mg/dL (8.4-10.2); Carbon Dioxide 26 mmol/L (22-30); Chloride 99 mmol/L (98-107); Estimated CRCL calculation 69 ml/min; Estimated Glomerular Filt Rate > 60; Glucose 117 mg/dL (65-110); Potassium 4.2 mmol/L (3.4-5.0); Sodium 137 mmol/L (137-145)
[2022-07-01] MEDS: LEVOTHYROXINE SODIUM 50 MCG TABLET PO (05:27)
[2022-07-01 05:58] LABS: Thyroid Stimulating Hormone Reflex 0.171 uIU/mL (0.465-4.68)
[2022-07-01 06:30] VITALS: BP 129/63; PULSE 57; RESP 20; TEMP 36; O2SAT 99
--- NOTE | 2022-07-01 06:30 | PM.PNORT ---
Subjective Subjective Date/Time Seen: 07/01/22 06:30 postop day 1 patient is alert. Afebrile vital signs are stable. Morning labs are noted. Patient was up walking history of physical therapy. She has been up over night several times to the restroom. Pain overall is well controlled. Her dressing is dry. Neurovascularly she is intact. Minimal swelling in the knee. We will have the patient work with physical therapy this morning if she continues to do well we will plan on discharging her home later this morning. Objective Data Vital Signs Vital Signs: Vital Signs - 24 hr 06/30/22 06:44 06/30/22 11:01 06/30/22 11:15 Temperature 36.3 C L 36.7 C Pulse Rate 74 74 65 Respiratory Rate 16 14 15 Blood Pressure 151/82 H 122/67 141/71 H Pulse Oximetry 97 97 100 Oxygen Delivery Room Air Simple Face Mask Simple Face Mask Oxygen Flow Rate 8 8 06/30/22 11:30 06/30/22 11:45 06/30/22 12:00 Temperature Pulse Rate 62 60 59 L Respiratory Rate 10 L 12 12 Blood Pressure 156/73 H 149/74 H 158/73 H Pulse Oximetry 100 98 94 Oxygen Delivery Simple Face Mask Room Air Room Air Oxygen Flow Rate 8 06/30/22 12:15 06/30/22 12:30 06/30/22 14:22 Temperature Pulse Rate 57 L 58 L Respiratory Rate 12 12 Blood Pressure 142/66 H 121/69 Pulse Oximetry 93 94 Oxygen Delivery Room Air Room Air Room Air Oxygen Flow Rate 06/30/22 13:00 06/30/22 13:15 06/30/22 13:45 Temperature 36.6 C 36.6 C 36.6 C Pulse Rate 59 L 57 L 56 L Respiratory Rate 12 16 16 Blood Pressure 138/73 141/73 H 135/71 Pulse Oximetry 96 98 98 Oxygen Delivery Oxygen Flow Rate 06/30/22 14:45 06/30/22 16:47 06/30/22 18:30 Temperature 36.5 C 36.6 C Pulse Rate 63 63 61 Respiratory Rate 16 16 Blood Pressure 143/73 H 139/72 Pulse Oximetry 99 99 Oxygen Delivery Oxygen Flow Rate 06/30/22 23:41 07/01/22 02:30 Temperature 36.3 C L 36.1 C L Pulse Rate 61 68 Respiratory Rate 18 16 Blood Pressure 122/66 116/54 L Pulse Oximetry 96 93 Oxygen Delivery Oxygen Flow Rate Intake/Output Intake/Output: Intake & Output 06/28/22 06/29/22 06/30/22 07/01/22 23:59 23:59 23:59 23:59 Intake Total 2440 Output Total 250 Balance 2190 Meds/Results Medications: Active Medications Generic Name Dose Route Start Last Admin Trade Name Freq PRN Reason Stop Dose Admin Acetaminophen 1,000 mg 06/30/22 12:45 07/01/22 00:23 Acetaminophen 500 Mg Tablet PO 1,000 mg Q6H LUIS Administration Allopurinol 100 mg 06/30/22 17:00 06/30/22 18:22 Allopurinol 100 Mg Tablet PO 100 mg BID LUIS Administration Apixaban 2.5 mg 07/01/22 09:00 Apixaban 2.5 Mg Tablet PO 07/12/22 21:01 Q12HR LUIS Atorvastatin Calcium 20 mg 06/30/22 21:00 06/30/22 21:41 Atorvastatin 20 Mg Tablet PO 20 mg HS [facility] Administration Carvedilol 25 mg 06/30/22 17:00 06/30/22 16:47 Carvedilol 25 Mg Tablet PO 25 mg BID LUIS Administration Celecoxib 200 mg 07/01/22 08:00 Celecoxib 200 Mg Capsule PO DAILY@0800 [facility] Cephalexin HCl 500 mg 07/01/22 12:00 Cephalexin 500 Mg Capsule PO Q6HR LUIS Cyanocobalamin 1,000 mcg 06/30/22 14:00 06/30/22 16:49 Cyanocobalamin 1,000 Mcg Tablet PO 1,000 mcg QAM [facility] Administration Dextrose 12.5 gm 06/30/22 13:52 Dextrose 50% 25 Gm/50 Ml Syringe IV PUSH PRN PRN Hypoglycemia Protocol Diphenhydramine HCl 25 mg 06/30/22 12:45 Diphenhydramine Hcl Inj 50 Mg/Ml Vial IV PUSH Q6H PRN Itching Famotidine 20 mg 06/30/22 21:00 06/30/22 21:41 Famotidine 20 Mg Tablet PO 20 mg Q12HR LUIS Administration Ferrous Sulfate 324 mg 07/01/22 09:00 Ferrous Sulfate 324 Mg Tablet PO QAM LUIS Glucagon 1 mg 06/30/22 13:52 Glucagon For Inj 1 Mg Vial IM PRN PRN Hypoglycemia Protocol Glucose 15 gm 06/30/22 13:52 Glucose Oral Gel 15 Gm Of Glucse In 37.5 Gm Tube PO PRN PRN Hypoglycemia Pr
--- NOTE | 2022-07-01 06:35 | PM.DS ---
DS: Admitting Diagnosis Discharge Date 07/01 Admitting Diagnosis Right knee DJD DS: Discharge Diagnosis Discharge Diagnosis (1) Osteoarthritis of right knee: Code(s): M17.11 - Unilateral primary osteoarthritis, right knee Status: Acute Plan 66-year-old female who underwent right total knee arthroplasty on 06/30. Underwent the procedure without complications. Postoperatively she has been afebrile vital signs been stable. She was up walking with physical therapy the day of surgery and was up to the restroom multiple times overnight the surgery. Postop day 1 she was alert pleasant. Pain is well controlled with scheduled Tylenol as well as oxycodone 5 mg. She is also on Celebrex 200 mg daily. She is Eliquis for DVT prophylaxis. She will be discharged home on 07/01. Patient advised to keep leg elevated on swelling to exercise on regular basis. She has outpatient therapy starting on of this week she also a 12 day course Keflex due to diabetes. She was calm Senokot MiraLax. Patient was advise any questions or concerns when she goes home she is to call office otherwise we will see appointment dates. Hemoglobin postop day 1 was 8.4. Patient was stable, she was having no decrease in blood pressure. She is symptoms she is up walking. DS: Summary Hospital Course Hospital Course: Stable Time Spent with Patient Time attestation: Total time spent providing and/or coordinating discharge services: DS: Data Data Completed and Pending Labs on day of discharge: Labs from last 24 hours 07/01/22 07/01/22 07/01/22 04:06 04:06 04:06 WBC RBC Hgb Hct MCV MCH MCHC RDW Plt Count MPV Immature Gran % (Auto) Neut % (Auto) Lymph % (Auto) [place] % (Auto) Eos % (Auto) Baso % (Auto) Lymph # (Auto) [place] # (Auto) Eos # (Auto) Baso # (Auto) Abs Immat Gran (auto) Absolute Neuts (auto) Absolute Nucleated RBC Nucleated RBC % Sodium 137 Potassium 4.2 Chloride 99 Carbon Dioxide 26 Anion Gap 12 BUN 21 H Creatinine 0.80 Estim Creat Clear Calc 69 Estimated GFR > 60 Glucose 117 H POC Capillary Glucose Calcium 7.9 L Magnesium 1.0 L Total Bilirubin 0.2 Direct Bilirubin 0.0 AST 17 ALT 16 Alkaline Phosphatase 43 Total Protein 6.0 L Albumin 3.6 TSH (Reflex) 0.171 L Free T4 Pending Blood Type Antibody Screen 07/01/22 07/01/22 06/30/22 04:06 04:06 21:45 WBC 10.1 H RBC 3.04 L Hgb 8.4 L Hct 26.7 L MCV 87.8 MCH 27.6 MCHC 31.5 L RDW 14.4 Plt Count 203 MPV 9.7 Immature Gran % (Auto) 0.3 Neut % (Auto) 79.7 H Lymph % (Auto) 10.9 L [place] % (Auto) 8.8 H Eos % (Auto) 0.1 Baso % (Auto) 0.2 Lymph # (Auto) 1.10 [place] # (Auto) 0.9 H Eos # (Auto) 0.0 Baso # (Auto) 0.0 Abs Immat Gran (auto) 0.03 Absolute Neuts (auto) 8.1 H Absolute Nucleated RBC 0.0 Nucleated RBC % 0.0 Sodium Cancelled Potassium Cancelled Chloride Cancelled Carbon Dioxide Cancelled Anion Gap Cancelled BUN Cancelled Creatinine Cancelled Estim Creat Clear Calc Cancelled Estimated GFR Cancelled Glucose Cancelled POC Capillary Glucose 222 H Calcium Cancelled Magnesium Total Bilirubin Direct Bilirubin AST ALT Alkaline Phosphatase Total Protein Albumin TSH (Reflex) Free T4 Blood Type Antibody Screen 06/30/22 06/30/22 06/30/22 16:58 11:27 06:32 WBC RBC Hgb Hct MCV MCH MCHC RDW Plt Count MPV Immature Gran % (Auto) Neut % (Auto) Lymph % (Auto) [place] % (Auto) Eos % (Auto) Baso % (Auto) Lymph # (Auto) [place] # (Auto) Eos # (Auto) Baso # (Auto) Abs Immat Gran (auto) Absolute Neuts (auto) Absolute Nucleated RBC Nucleated RBC % Sodium Potassium Chloride Carbon Di
[2022-07-01] MEDS: MAGNESIUM SULF 4 GM/WATER100ML 4 GM/100 ML BAG IVPB (07:27)
[2022-07-01 07:43] LABS: Free T4 Free Thyroxine Reflex 1.71 ng/dL (0.78-2.19)
[2022-07-01 08:25] LABS: Total Triiodothyronine (T3) 0.69 NG/ML (0.97-1.69)
[2022-07-01] MEDS: polyethylene glycoL 3350 17 GM POWD.PACK PO (08:39)
[2022-07-01] MEDS: CELECOXIB 200 MG CAPSULE PO (08:39)
[2022-07-01] MEDS: PREGABALIN (*CRX) 50 MG CAPSULE 100 MG PO (08:39)
[2022-07-01] MEDS: APIXABAN 2.5 MG TABLET PO (08:39)
[2022-07-01] MEDS: FERROUS SULFATE 324 MG TABLET PO (08:39)
[2022-07-01] MEDS: SENNA/DOCUSATE SODIUM TABLET 2 TAB PO (08:40)
[2022-07-01] MEDS: FAMOTIDINE 20 MG TABLET PO (08:40)
[2022-07-01] MEDS: allopurinoL 100 MG TABLET PO (08:40)
[2022-07-01] MEDS: CYANOCOBALAMIN 1,000 MCG TABLET 1000 MCG PO (08:40)
[2022-07-01] MEDS: metFORMIN HCL XR 500 MG TAB.SR.24H 1000 MG PO (08:40)
[2022-07-01 08:41] VITALS: PULSE 64
[2022-07-01] MEDS: MAGNESIUM OXIDE 400 MG TABLET PO ×2 (08:41→12:25)
[2022-07-01] MEDS: carvediloL 25 MG TABLET PO (08:41)
--- NOTE | 2022-07-01 09:15 | PM.IMPN ---
Progress Note: A&P Assessment and Plan (1) Osteoarthritis of right knee: Code(s): M17.11 - Unilateral primary osteoarthritis, right knee Status: Acute Assessment and Plan: postoperative day 1 Post op care per ortho Wound care Pain control on board PT/OT DVT Eliquis 2.5mg (2) Type 2 diabetes mellitus: Code(s): E11.9 - Type 2 diabetes mellitus without complications Status: Acute Assessment and Plan: Glucose currently 117 A1c 6.3 Initiate sliding scale insulin Accu-Cheks hypoglycemic protocol Resume metformin on discharge. (3) Iron deficiency anemia: Code(s): D50.9 - Iron deficiency anemia, unspecified Status: Acute Assessment and Plan: Continue iron supplementation H&H stable at 8.4/26.7 Continue to trend labs (4) Hypothyroidism: Code(s): E03.9 - Hypothyroidism, unspecified Status: Acute Assessment and Plan: Continue levothyroxine TSH 0.171 (5) Hypertension: Code(s): I10 - Essential (primary) hypertension Status: Acute Assessment and Plan: BP is 116/54 Continue home carvedilol, Trend BP Adjust therapy as indicated (6) Dyslipidemia: Code(s): E78.5 - Hyperlipidemia, unspecified Status: Acute Assessment and Plan: Continue statin LFTs within normal range Time Spent With Patient Time with patient: Greater than 35 minutes Subjective Date/time seen: 07/01/22914 Interval history: 07/01/22914 Patient is stable for discharge at this time. Patient has no complaints. She denies any chest pain, shortness a breath, nausea, vomiting, diarrhea, constipation, weakness or fatigue. She did have low magnesium were replaced. She looks good 06/30/22? 20:00 This is a 66-year-old female with osteoarthritis of the right knee status post right total knee arthroplasty whom the hospitalist service has been consulted for help managing her medical conditions postoperatively. In addition to arthritis, her medical history is significant for type 2 diabetes mellitus with a recent A1c of 6.3%, hypertension, hyperlipidemia, gout, and iron deficiency anemia. She has had longstanding pain in both knees, right greater than left, and unfortunately conservative outpatient treatment has not provided her with longstanding relief and she elected for replacement today. Her surgery was performed under general anesthesia. No immediate complications were documented and her estimated blood loss was 300 mL. At the time of my evaluation? She is resting comfortably and she states that her pain is well controlled. She has been up to the chair and was doing quite well with that.? Appetite has been good and she ate dinner without issue. She denies postoperative fever, chills, chest pain, shortness a breath, nausea, vomiting. On discharge plans on going home and her daughter was a nurse is going to be helping her out for a bit. Review of Systems Review of Systems: All systems reviewed & are unremarkable except as noted in HPI and below Exam Const: General: cooperative, healthy appearing, no acute distress, well developed, alert, awake and well nourished Nutritional Appearance: well nourished Orientation/consciousness: patient oriented x3 Limitations: no limitations HENMT: Head: normal to inspection Ears: hearing grossly normal bilaterally Face/Nose/Sinus: Normal external nose present Mouth: Yes Normal oral and palatal mucosa present, Yes lip normal and Yes tongue normal Teeth and gingiva: abnormal tooth and associated gingiva and poor dentition Eyes: General: appearance normal, both eyes and all related structures Neck: Neck: normal visual inspection, full ROM, trachea midline and supple Chest: Chest palpation & inspection: normal inspection of the chest Resp: Effort & Inspection: normal respiratory effort and able to speak in complete sentences Auscultation: clear to
[2022-07-01 09:25] LABS: Glucose Point of Care 122 mg/dl (65-105)
[2022-07-01 09:55] VITALS: BP 116/58; PULSE 56; RESP 16; TEMP 36.5; O2SAT 95
[2022-07-01] MEDS: CEPHALEXIN 500 MG CAPSULE PO (12:24)
[2022-07-01 12:43] LABS: Glucose Point of Care 159 mg/dl (65-105)
== END 2022-07-01 13:12 | disposition home or self-care (01) ==
LOC: ANHSURGERY 05:49 → ANH2MED 12:48
PROVIDERS: Physician Assistant; Physician Assistant Surgical; PCP Internal Medicine; Visit Provider Orthopaedic Surgery
PROC: (CPT 27447; principal; 2022-06-30 07:30)
DX: M17.11 Unilateral primary osteoarthritis, right knee (principal); E11.9 Type 2 diabetes mellitus without complications; E78.5 Hyperlipidemia, unspecified; M10.9 Gout, unspecified; I10 Essential (primary) hypertension; E03.9 Hypothyroidism, unspecified; D50.9 Iron deficiency anemia, unspecified; Z87.891 Personal history of nicotine dependence; E66.9 Obesity, unspecified; Z68.42 Body mass index [BMI] 45.0-49.9, adult; Z79.82 Long term (current) use of aspirin; Z79.84 Long term (current) use of oral hypoglycemic drugs
CPT/HCPCS: 27447; 36415; 73560; 80048; 80076; 82948; 83735; 84439; 84443; 84480; 85025; 86850; 86900; 86901; 97110; 97161; 97165; 97530; 97535; A9270; C1713; C1776; J0171; J0330; J0690; J1100; J1170; J1885; J2250; J2270; J2405; J2704; J2710; J2795; J3010; J3370; J3475; J7030; J7120

== ENCOUNTER 2022-07-03 10:49 | Outpatient (RCR) | payer MEDICARE, SELFPAY ==
--- NOTE | 2022-07-03 12:09 | PTOPEVAL1 ---
Assessment and note entered by Sugar Benitez DPT Evaluation Information Assessment Status Evaluation Diagnosis R total knee replacement Onset 06/30/2022 Subjective Information Pt had her R knee replacement on 06/30/22 due to osteoarthritis in her knee. Pt reports that she has been using pain medications, icing, and elevation for pain relief but feels that she has been unable to keep her pain under control since surgery. She has been making sure to stay off of her leg for more than 30 minutes. She has her next follow-up is around 07/14 but they are changing the bandage on Thursday. In her free time, she likes to babysit and play with her grandkids as well as riding her bike. Reported Pain Level Pain Score 7: Self Report Assessment PT Clinical Summary Pt presents to PT s/p R TKA on 06/30/2022 with R knee pain and demonstrates decreased strength, decreased ROM, joint edema, and antalgic gait. These current deficits make it more challenging for her to walk and stay on her feet as needed for playing with her grandkids and ride her bicycle. Passive ROM/mobility and gentle strengthening performed today, and her HEP was reviewed. She will benefit from skilled PT to facilitate symptom relief, improve the aforementioned impairments, and return to functional and recreational activities. Plan of Care Interventions Electrical Stimulation,Gait Training,Hot Pack/Cold Pack,Intermittent Compression,Manual Therapy, Neuro Re-education,Patient/Caregiver Educati, Therapeutic Activities,Therapeutic Exercise PT Services Indicated Yes Treatment Frequency and 2x week for 12 visits Duration These treatments will address the objective and functional deficits as defined above. The patient will be advanced safely and appropriately in order for the patient to progress towards his/her prior level of function. Additional exercises will be introduced and as well as a comprehensive home exercise program upon discharge, if needed, ?to ensure carryover of functional gains achieved in the clinic. This treatment plan has been reviewed and agreement upon by the patient.
--- NOTE | 2022-08-07 12:02 | PTOPPROG ---
Assessment and note entered by Sugar Benitez DPT Evaluation Information Assessment Status Progress Diagnosis R TKR Onset 06/30/2022 Subjective Information Pt arrives today with acute onset of vertigo. She reports no knee pain today and she was able to walk at [place] over the weekend without any pain and she reports she walked more than she has in a long time. Pt reports room-spinning when getting out of bed and when standing up out of a chair. She reports this happened when she was turned to the L. She reports a fall the other day due to this where she landed on her R side. Her next follow-up is on Saturday 08/[address] Lamas. Assessment PT Clinical Summary Pt presents to skilled PT with significant improvements in pain, strength, and range of motion since her initial evaluation. Although the patient was only able to achieve 114 degrees of flexion today, at her last session, she achieved 119 degrees of flexion and stretching was not able to be performed due to intensity of vertigo. Pt presented with posterior canalithic involvement which was treated via the L [place] x 3. She is scheduled for one more session for her knee after her next follow-up with her MD on 08/11. Plan of Care PT Services Indicated Yes Treatment Frequency and 1x week for remaining 1 visit Duration These treatments will address the objective and functional deficits as defined above. The patient will be advanced safely and appropriately in order for the patient to progress towards his/her prior level of function. Additional exercises will be introduced and as well as a comprehensive home exercise program upon discharge, if needed, ?to ensure carryover of functional gains achieved in the clinic. This treatment plan has been reviewed and agreement upon by the patient.
--- NOTE | 2022-08-14 11:27 | PTOPDC ---
Assessment and note entered by Sugar Benitez DPT Evaluation Information Assessment Status Discharge Diagnosis R TKR, vertigo Onset 06/30/2022 Subjective Information Pt reports that she had her visit with Dr. Lamas 's office on Thursday. Their office is just as happy as her progress with her knee as she is and she just has a 1-year follow-up with the office. In regards to her dizziness, pt reports that she hasn't gotten room-spinning dizziness since her last PT session. She does note some dizziness/ disequilibrium recently when sitting up and standing up after bending over. She reports that she does take BP medications regularly. Reported Pain Level Pain Score 0: Self Report Assessment PT Clinical Summary Pt presents to PT for formal discharge from PT for the knee and for reassessment of dizziness treated at last session. At last session, L posterior canal canalithiasis was treated 3x with Jalen Mckenzie and patient tested negatively for the L [place] this date, indicating unlikely canal involvement. Due to some lasting symptoms of disequilibrium, VOR screening performed as well as orthostatic hypotension testing due to symptoms with positional changes. VOR screening indicated unlikely peripheral/central vestibular involvement . Positional testing indicated likely orthostatic hypotension involvement due to drop in systolic BP by >20 mmHg and diastolic BP by >10 mmHg from supine to sitting position with familiar symptom response. She is to be discharged from skilled PT at this time, and she is likely to benefit from a consultation with her MD regarding her current dosage of BP medications to improve symptom response and decrease risk for falls with positional changes. Plan of Care PT Services Indicated No
== END 2022-08-14 12:51 | disposition home or self-care (01) ==
LOC: CHSPT 10:49
PROVIDERS: Visit Provider Orthopaedic Surgery
DX: Z96.651 Presence of right artificial knee joint (principal); R42 Dizziness and giddiness
CPT/HCPCS: 97014; 97016; 97110; 97161; G0283

== ENCOUNTER 2022-11-30 15:17 | Emergency (ER) | payer MEDICARE, SELFPAY ==
[2022-11-30] VITALS (7 sets, daily range): BP systolic 103–162; BP diastolic 62–93; PULSE 93–110; RESP 11–18; TEMP 36.6; O2SAT 95–100
--- NOTE | ~2022-11-30 | CT_ITS ---
EXAMINATION: CT abdomen pelvis w con DATE: 11/30/2022 17:57 INDICATION: trauma TECHNIQUE: Computed tomography (CT) of the abdomen and pelvis was performed with 100 mL Omnipaque-350 intravenous contrast. Automated exposure control and iterative reconstruction technique were employe d. The dose-length product was 1522.87 mGy-cm. COMPARISON: None. FINDINGS: Lower thorax: Aortic valve and coronary calcifications. Calcified lingular granuloma. Bibasilar depen dent atelectasis Liver: Normal. Biliary/Gallbladder: Gallbladder is absent. Mild intra and extrahepatic bile duct dilation, likely re lated to prior cholecystectomy. Pancreas: No mass or duct dilation. Spleen: Granulomatous calcifications. Adrenals:No mass. Kidneys: Left midpole hypodensity, too small to characterize but likely represents a cyst. Right oz ical thinning. GI tract: No small or large bowel dilation. Normal appendix. Diverticulosis without diverticulitis. Mesentery/Peritoneum: No ascites, mass, or free air. Retroperitoneum: No mass. Atherosclerotic abdominal aortic and/or arterial calcifications. Pelvis: Pelvic organs mostly obscured by metal artifact. Soft Tissues: 13.1 x 6.5 x 10.3 cm deep subcutaneous hematoma in the left hip with a small blush of a ctive extravasation, possibly representing a Valdes-Megan lesion. Enlargement of the left quadricep s muscles, incompletely visualized due to [id number] coverage. Bones: Uncomplicated appearing bilateral hip arthroplasties. Minimally distracted left greater tuber osity fracture. Minimally displaced left ninth lateral rib fracture. Nondisplaced, subtle left monie lateral and posterior seventh rib fractures. Subtle nondisplaced left anterolateral fifth and sixth r ib fractures. IMPRESSION: 1. No acute intra-abdominal/pelvic trauma. 2. Multiple nondisplaced and minimally displaced left rib fractures, described in detail above. 3. Minimally distracted left femoral greater trochanter fracture. 4. 13.1 cm left hip subcutaneous hematoma with small volume active extravasation. 4. Intramuscular hematoma involving the partially visualized left quadriceps musculature. Urgent results relating to active soft tissue extravasation reported telephonically to Dr. Green by Dr. Groves at 6:18 PM on 11/30/2022. Reviewed, dictated and finalized at location K. IMPRESSION: 1. No acute intra-abdominal/pelvic trauma. 2. Multiple nondisplaced and minimally displaced left rib fractures, described in detail above. 3. Minimally distracted left femoral greater trochanter fracture. 4. 13.1 cm left hip subcutaneous hematoma with small volume active extravasatio n. 4. Intramuscular hematoma involving the partially visualized left quadriceps mu sculature. Urgent results relating to active soft tissue extravasation reported telephonic ally to Dr. Green by Dr. Groves at 6:18 PM on 11/30/2022.
--- NOTE | ~2022-11-30 | CT_ITS ---
EXAMINATION: CT cervical spine wo con DATE: 11/30/2022 16:13 INDICATION: fall TECHNIQUE: Computed tomography (CT) of the cervical spine was performed without intravenous contrast. Automated exposure control and iterative reconstruction technique were employed. The dose-length pro duct was 489.88 mGy-cm. COMPARISON: None. FINDINGS: Vertebral Body Alignment: Intact. Minimal anterolistheses at C5-6 and C7-T1, likely on a degenerative basis. Craniocervical and atlantoaxial alignment: Moderate degenerative change with pannus formation. Alignm ent intact. Osseous structures/fracture: No evidence of a lytic or blastic process in the visualized spine. No e vidence of acute fracture. . Cervical soft tissues: The paraspinal soft tissues planes are maintained. Degenerative changes: Degenerative changes, including severe multilevel facet arthropathy, without se collin neural foraminal or central canal narrowing. IMPRESSION: No acute fracture or traumatic malalignment in the cervical spine. Reviewed, dictated and finalized at location K.
--- NOTE | ~2022-11-30 | XR_ITS ---
EXAM: XR lumbar spine min 4V DATE: 11/30/2022 16:42 HISTORY: fall, PAIN ON LT SIDE . COMPARISON: None available. FINDINGS: Lumbar scoliosis. 5 nonrib-bearing lumbar-type vertebral bodies. Pedicles intact. Grade 1 a nterolistheses at L4-5 and L5-S1. Vertebral body heights preserved. Multilevel moderate and mild dege nerative disc disease. Multilevel severe facet arthropathy. No pars defect. No fracture or dislocatio n. IMPRESSION: No acute fracture or traumatic malalignment detected in the lumbar spine. Reviewed, dictated and finalized at location K.
--- NOTE | ~2022-11-30 | CT_ITS ---
EXAMINATION: CT brain wo con DATE: 11/30/2022 16:13 INDICATION: fall . TECHNIQUE: Computed tomography (CT) of the head was performed without intravenous contrast. The mA wa s adjusted according to patient size. Iterative reconstruction technique was employed. The dose-lengt h product was 605.33 mGy-cm. COMPARISON: 07/14/11. FINDINGS: No acute intracranial hemorrhage or extra-axial fluid collection. No hydrocephalus, mass, or herniation. No acute ischemic infarct. Unremarkable dural venous sinus attenuation. No acute osseous abnormality. Nodular mucosal thickening in the bilateral inferior maxillary sinuses, otherwise the aerated spaces are clear. Mild atrophy and chronic white matter change. Atherosclerotic intracranial calcification. Bilateral l ens replacements. IMPRESSION: No acute intracranial process. Reviewed, dictated and finalized at location K.
--- NOTE | ~2022-11-30 | XR_ITS ---
EXAM: XR hip LT 2V w AP pelvis DATE: 11/30/2022 16:42 HISTORY: fall, PAIN ON LT SIDE . COMPARISON: None available. FINDINGS: Decreased mineralization. Uncomplicated appearing bilateral hip arthroplasties. Transverse fracture involving the left greater trochanter, with 3 mm distraction. No lytic or blastic lesion. L umbar degenerative disc disease. Osteitis pubis. No erosion or periosteal change. Pelvic phleboliths. IMPRESSION: Minimally distracted transverse fracture of the left greater trochanter. Reviewed, dictated and finalized at location K. IMPRESSION: Minimally distracted transverse fracture of the left greater trocha nter.
--- NOTE | ~2022-11-30 | XR_ITS ---
EXAMINATION: [id number] Exam Date/Time: 11/30/2022 16:20 CDT HISTORY: fall, pain on lt side Comparison: None available. RESULT: Lines, tubes, and devices: None. Lungs and pleura: Calcified peripheral left lung granuloma. Otherwise clear. Cardiomediastinal silhouette: Stable. Prominent pericardial fat pad Other: No acute upper abdominal finding. Minimally displaced oblique fracture of the left lateral ni nth rib. IMPRESSION: Minimally displaced, oblique fracture of the left lateral ninth rib.. Reviewed, dictated and finalized at location K.
--- NOTE | 2022-11-30 15:24 | ECG_ITS ---
Measurements Intervals [place] Rate: 96 P: 29 LA: 175 QRS: 2 QRSD: 84 T: 54 QT: 321 QTc: 407 Interpretive Statements SINUS RHYTHM NO PREVIOUS ECG AVAILABLE FOR COMPARISON Electronically Signed On 12-01-2022 12:10:09 CDT by Prerna Perea M.D.
[2022-11-30 16:56] LABS: Basophils Absolute Auto 0.1 K/mm3 (0.0-0.1); Basophils Percent Auto 0.7 % (0.2-1.2); Eosinophils Absolute Auto 0.4 K/mm3 (0-0.3); Eosinophils Percent Auto 3.4 % (0-4.4); Hemoglobin 9.1 g/dL (12.0-15.0); Immature Granulocyte Absolute 0.08 K/mm3 (0.00-0.031); Immature Granulocyte Percent A 0.6 % (0-0.5); Lymphocytes Absolute Auto 1.84 K/mm3 (0.9-3.2); Lymphocytes Percent Auto 14.2 % (18.3-44.2); Mean Corpuscular HGB Conc 31.4 g/dl (32-36); Mean Corpuscular Hemoglobin 27.7 pg (26-34); Mean Corpuscular Volume 88.4 fl (80-100); Mean Platelet Volume 9.7 fl (7.4-10.4); Monocytes Absolute Auto 0.9 K/mm3 (0.1-0.6); Monocytes Percent Auto 7.2 % (2.6-8.5); Neutrophils Absolute Auto 9.6 K/mm3 (1.3-6.7); Neutrophils Percent Auto 73.9 % (45.5-73.1); Platelet Count Result 275 k/mm3 (150-375); Red Blood Count 3.28 M/mm3 (4.2-5.4); Red Cell Distribution Width 15.9 % (11.5-14.5)
[2022-11-30 17:07] LABS: Alanine Aminotransferase 27 U/L (6-35); Albumin Level 4.4 g/dL (3.5-5.1); Alkaline Phosphatase 55 U/L (38-126); Anion Gap 5 mmol/L (8-16); Aspartate Amino Transferase 31 U/L (14-36); Bilirubin,Total 0.4 mg/dL (0.2-1.3); Blood Urea Nitrogen 31 mg/dL (7-17); Calcium 9.4 mg/dL (8.4-10.2); Carbon Dioxide 31 mmol/L (22-30); Chloride 103 mmol/L (98-107); Estimated CRCL calculation 38 ml/min; Estimated Glomerular Filt Rate 35; Glucose 159 mg/dL (65-110); Sodium 139 mmol/L (137-145)
--- NOTE | 2022-11-30 18:37 | ED.FALL ---
HPI - Fall General Chief Complaint: Fall Stated Complaint: fall, hip fx? Time Seen by Provider: 11/30/22 15:19 Source: patient Mode of arrival: wheelchair Limitations: no limitations History of Present Illness HPI Narrative: 67-year-old with a history of hypertension, diabetes, osteoarthritis, s/p bilateral hip replacement here with complaints of fall. Patient states that she fell down 10 steps. She denies loss of consciousness. Complains of pain on the entire left side of her body. MD complaint: fall Onset (ago): hour(s) (1) Fall from: down stairs (#) (10) Fall witnessed: yes, by family Place fall occurred: home Loss of consciousness: none Symptoms prior to fall: none Context: tripped/slipped Location of injury - extremities: Left: thigh and lower leg Severity: moderate Quality: burning and aching Associated symptoms (after fall): denies Related Data Home Medications Medication Instructions Recorded Confirmed allopurinol 100 mg tablet 100 mg PO DAILY 10/10/19 06/30/22 atorvastatin 20 mg tablet 20 mg PO DAILY 10/10/19 06/30/22 carvedilol 25 mg tablet 25 mg PO BID 10/10/19 06/30/22 levothyroxine 50 mcg capsule 50 mcg PO DAILY 10/10/19 06/30/22 magnesium 200 mg tablet 400 mg PO TID 10/10/19 06/30/22 metformin 500 mg tablet,extended 1,000 mg PO BID 10/10/19 06/30/22 release 24 hr cyanocobalamin (vitamin B-12) 1,000 mcg PO QAM 05/06/22 06/30/22 1,000 mcg tablet ferrous sulfate 325 mg (65 mg 325 mg PO QAM 05/06/22 06/30/22 iron) tablet multivitamin 1 tablet PO QAM 05/06/22 06/30/22 pregabalin 100 mg capsule 100 mg PO BID 05/06/22 06/30/22 psyllium 1 packet PO QAM 05/06/22 06/30/22 allopurinol 100 mg tablet mg 11/30/22 atorvastatin 20 mg tablet mg 11/30/22 carvedilol 25 mg tablet mg 11/30/22 diclofenac sodium 75 mg mg PO 11/30/22 tablet,delayed release famotidine 40 mg tablet mg 11/30/22 ketorolac 0.5 % eye drops drp 11/30/22 levothyroxine 50 mcg tablet mcg 11/30/22 metformin 500 mg tablet,extended mg PO 11/30/22 release 24 hr ofloxacin 0.3 % eye drops drp 11/30/22 pregabalin 100 mg capsule mg 11/30/22 Allergies Allergy/AdvReac Type Severity Reaction Status Date / Time meloxicam Allergy Unknown SWELLING Verified 11/30/22 15:40 OF FEET metaxalone Allergy Unknown FACIAL Verified 11/30/22 15:40 SWELLING cyclobenzaprine AdvReac Unknown COGNITIVE Verified 11/30/22 15:40 DEFECT simvastatin AdvReac Unknown MYALGIA Verified 11/30/22 15:40 Review of Systems Review of Systems: All systems reviewed & are unremarkable except as noted in HPI and below Constitutional: Constitutional: Reports no additional constitutional complaints Eyes: Eyes: Reports no additional eye complaints ENT: Reports system reviewed and no additional complaints, except as documented Cardiovascular: Cardiovascular: Reports no additional cardiovascular complaints Respiratory: Respiratory: Reports no additional respiratory complaints Gastrointestinal: Gastrointestinal: Reports no additional gastrointestinal complaints Musculoskeletal: Musculoskeletal: Reports as per HPI Neurologic: Reports system reviewed and no additional complaints, except as documented PMFSH Past Medical History Medical History (Updated 11/30/22 @ 18:51 by Herman Green MD) Dyslipidemia Gout Hypertension Hypothyroidism Iron deficiency anemia Type 2 diabetes mellitus Surgical History Surgical History History of arthroplasty of right knee History of bunionectomy Hx of bilateral hip replacements Hx of carpal tunnel repair Hx of section Hx of cholecystectomy Hx of colonoscopy Hx of esophagogastroduodenoscopy Family History Family History Mother Uterine cancer Leukemia Hypertension Father Acute myocardial infarction Social History Social History (Updated 06/30/22 @ 13:50 by Paula Dacosta
[2022-11-30] MEDS: MORPHINE SULFATE (*CRX) 4 MG/ML INJ IV PUSH (19:06)
== END 2022-11-30 20:08 | disposition short-term general hospital (02) ==
PROVIDERS: Emergency Provider Family Medicine; PCP Internal Medicine
DX: S22.42XA Multiple fractures of ribs, left side, initial encounter for closed fracture (principal); S72.112A Displaced fracture of greater trochanter of left femur, initial encounter for closed fracture; I10 Essential (primary) hypertension; E11.9 Type 2 diabetes mellitus without complications; E78.5 Hyperlipidemia, unspecified; E03.9 Hypothyroidism, unspecified; Z79.84 Long term (current) use of oral hypoglycemic drugs; Z87.891 Personal history of nicotine dependence; W10.8XXA Fall (on) (from) other stairs and steps, initial encounter; Y92.009 Unspecified place in unspecified non-institutional (private) residence as the place of occurrence of the external cause
CPT/HCPCS: 36415; 70450; 71101; 72110; 72125; 73502; 74177; 80053; 85025; 93005; 96374; 99284; 99285; J2270; L0140; Q9967

== ENCOUNTER 2023-01-27 14:28 | Outpatient (RCR) | payer MEDICARE, SELFPAY ==
--- NOTE | 2023-01-27 15:24 | PTOPEVAL1 ---
Assessment and note entered by Dalton Roth Evaluation Information Assessment Status Evaluation Diagnosis left hip pain Onset 11/30/22 Subjective Information Pt. reports that she fell down her steps at home on 11/30/22. She reports that she was carrying coats upstairs and lost her footing. She reports she went to the hospital immediately. 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 She reports that she was restriced to 20# WB on the left foot until 2 weeks ago. She reports she is currently WBAT. She reports she is terrified to go up and down steps and requires 2 steps to get into and out of her house. She reports that prior to injury she was independent with all IADL's and driving. She reports she has not returned to driving. She states that her goal for therapy is to return to walking normal and return to driving. Reported Pain Level Pain Score 2: Self Report Assessment PT Clinical Summary Pt. is a 67 year old female who enters the clinic post left hip fx. She presents with impaired strength, impaired gait and hip pain on this date. Continued skilled PT is indicated in order to improve these areas to allow the pt. to be able to complete all IADL's with improved independence. Plan of Care Interventions Electrical Stimulation,Gait Training,Hot Pack/Cold Pack,Manual Therapy,Neuro Re-education, Therapeutic Activities,Therapeutic Exercise PT Services Indicated Yes Treatment Frequency and 2x/week x 10 visits Duration These treatments will address the objective and functional deficits as defined above. The patient will be advanced safely and appropriately in order for the patient to progress towards his/her prior level of function. Additional exercises will be introduced and as well as a comprehensive home exercise program upon discharge, if needed, ?to ensure carryover of functional gains achieved in the clinic. This treatment plan has been reviewed and agreement upon by the patient.
--- NOTE | 2023-01-27 15:25 | OPREHPOC ---
Outpatient Therapy Plan of Care This is a Multidisciplinary Plan of Care that may contain components documented by all disciplines (PT, OT, and ST.) PT Problem 1 PT Problem #1 Knowledge Deficit PT Goal 1 Goal Pt. will be independent with a HEP addressing strength and mobility. Target Visit 2 PT Problem 2 PT Problem #2 Impaired Balance PT Goal 1 Goal Improve tinetti score to 24 or greater Target Visit 12 PT Problem 3 PT Problem #3 Impaired Gait PT Goal 1 Goal Advance to ambulation without an AD completing the 6 minutes walk test over a distance of 600' or greater PT Problem 4 PT Problem #4 Impaired Functional Mobil PT Goal 1 Goal Pt. will be appropriate to return to driving Target Visit 12
== END 2023-03-09 14:24 | disposition home or self-care (01) ==
LOC: CHSPT 14:28
DX: M25.552 Pain in left hip (principal)
CPT/HCPCS: 97110; 97112; 97116; 97161; 97530; 97750

== ENCOUNTER 2023-04-14 15:13 | Outpatient (RCR) | payer MEDICARE, SELFPAY ==
--- NOTE | 2023-04-14 16:26 | PTOPEVAL1 ---
Assessment and note entered by Reshma Aranda, PT Evaluation Information Assessment Status Evaluation Diagnosis Cervical Pain & DJD Onset 04/02/23 Subjective Information Airam Dela Cruz reports she had an onset of right sided neck pain and headaches on the right side of her head that will move to the top of her head about a month ago. She sees a chiropractor for her back and he manipulated her neck once and since then she has had pain. She went to her PCP and he suggested she try physical therapy. She had x-rays in November 2022 after a fall and it showed DJD in her spine. She also tried OTC allergy medication and flonase for the headaches and that has decreased them slightly. She is noting headaches on a daily basis now and she has difficulty sleeping, driving, lifting, and reading. Reported Pain Level Pain Score 5: Self Report Assessment PT Clinical Summary Airam Dela Cruz presents with right sided neck pain and headaches that started about a month ago. She has difficulty with sleeping, driving, lifting, and reading and notes daily headaches. She objectively demonstrates tension and tenderness in the right upper trapezius and scalenes, decreased and painful cervical AROM, impaired posture, and decreased functional abilities. She will benefit from skilled PT to address these limitations. Plan of Care Interventions Electrical Stimulation,Hot Pack/Cold Pack,Manual Therapy,Patient/Caregiver Educati,Therapeutic Activities,Therapeutic Exercise PT Services Indicated Yes Treatment Frequency and 2 times a week for 10 visits Duration These treatments will address the objective and functional deficits as defined above. The patient will be advanced safely and appropriately in order for the patient to progress towards his/her prior level of function. Additional exercises will be introduced and as well as a comprehensive home exercise program upon discharge, if needed, ?to ensure carryover of functional gains achieved in the clinic. This treatment plan has been reviewed and agreement upon by the patient.
--- NOTE | 2023-04-14 16:26 | OPREHPOC ---
Outpatient Therapy Plan of Care This is a Multidisciplinary Plan of Care that may contain components documented by all disciplines (PT, OT, and ST.) PT Problem 1 PT Problem #1 Knowledge Deficit PT Goal 1 Goal The patient will demonstrate independence in a home exercise program to continue after discharge from formal PT. Target Visit 10 PT Problem 2 PT Problem #2 Pain PT Goal 1 Goal The patient will report no greater than 3/10 neck and headache pain with daily activities. Target Visit 10 PT Problem 3 PT Problem #3 Impaired Sensation PT Goal 1 Goal The patient will demonstrate 50 degrees of cervical rotation AROM to improve daily function. Target Visit 10 PT Problem 4 PT Problem #4 Impaired Functional Mobil PT Goal 1 Goal The patient will score 20% or less on the Neck Index indicating improved ability to perform daily tasks. Target Visit 10
--- NOTE | 2023-05-14 17:38 | PTOPDC ---
Assessment and note entered by Reshma Aranda, PT Evaluation Information Assessment Status Evaluation Diagnosis Cervical Pain & DJD Onset 04/02/23 Subjective Information Airam Dela Cruz reports her neck is getting better overall. She reports her headaches had gone away except for one day this week she had one. She notes less pain with daily activities and feels she moves around better. She denies limitations with daily tasks now. Reported Pain Level Pain Score 4: Self Report Pain Score 4: Self Report Assessment PT Clinical Summary Airam Dela Cruz has completed 10 skilled PT visits for cervical pain and DJD. She is reporting less pain and improved mobility since initiating PT. She objectively demonstrates improved cervical AROM, improved posture, and improved functional abilities. She will be discharged from skilled PT to her independent HEP. Plan of Care PT Services Indicated No
== END 2023-05-14 18:56 | disposition home or self-care (01) ==
LOC: CHSPT 15:13
PROVIDERS: PCP Internal Medicine; Visit Provider Internal Medicine
DX: M54.2 Cervicalgia (principal); M19.90 Unspecified osteoarthritis, unspecified site
CPT/HCPCS: 97014; 97110; 97140; 97161; G0283

== ENCOUNTER 2024-02-24 12:55 | Outpatient (RCR) | payer MEDICARE, SELFPAY ==
--- NOTE | 2024-02-18 11:54 | PCPTNOTE ---
Patient called & cancelled scheduled appointment this date due to [in ER with all night, she will call back to reschedule]
--- NOTE | 2024-02-24 13:50 | OPREHPOC ---
Outpatient Therapy Plan of Care This is a Multidisciplinary Plan of Care that may contain components documented by all disciplines (PT, OT, and ST.) PT Problem 1 PT Problem #1 Knowledge Deficit PT Goal 1 Goal 1. independent and compliant with HEP Target Visit 3 PT Problem 2 PT Problem #2 Pain PT Goal 1 Goal 1. patient to report pain at worst to be no more than 3/10 since being in skilled PT Target Visit 6 PT Problem 3 PT Problem #3 Impaired Strength PT Goal 1 Goal 1. 4+/5 or better bilateral hip flex 2. 4+/5 or better bilateral hip abd 3. 5/5 L knee ext Target Visit 6 PT Problem 4 PT Problem #4 Impaired Functional Mobil PT Goal 1 Goal 1. LEFS to display 25% or less functional deficits 2. patient to complete greater than 1000ft ambulation in 6 minutes 3. patient to display decreased L Trendelenburg lean during ambulation 4. reciprocal ambulation up and down 1 flight of steps Target Visit 6
--- NOTE | 2024-02-24 13:50 | PTOPEVAL1 ---
Assessment and note entered by JT File, PT Evaluation Information Assessment Status Evaluation Diagnosis L knee pain OA Onset 01/05/24 Subjective Information patient reports she has OA in the knees, but is here for the L knee. she reports she just finished up gel injections on the L knee (last one was yesterday). she reports she had a round of 5 shots . she reports she has had pain in the L knee for several years, and has done injections in the past . however, her doctor was adamant about her doing PT after this round. she has had a TKA on the R knee back in 2021. she reports she has little pain today, but does have a vacation planned in March . she reports she wants to be doing well for that vacation. she reports she is going to [place]. she reports the knee with increase in pain with longer standing/walking, and she reports she does have to adjust her gait up and down steps. Reported Pain Level Pain Score 0: Self Report Assessment PT Clinical Summary mrs. salazar is a 68 yo woman who presents to skilled PT services for evaluation and treatment of L knee OA. she recently had gel injections to the L knee and her pain is relatively low. however , she does display weakness in the L knee and L hip, as well as, abnormal gait mechanics. she would benefit from continued skilled PT to address her objective/functional deficits and progress towards improve functional activity performance/ quality of life. Plan of Care Interventions Electrical Stimulation,Gait Training,Hot Pack/Cold Pack,Manual Therapy,Neuro Re-education, Therapeutic Activities,Therapeutic Exercise PT Services Indicated Yes Treatment Frequency and 2x weekly for 6 visits Duration These treatments will address the objective and functional deficits as defined above. The patient will be advanced safely and appropriately in order for the patient to progress towards his/her prior level of function. Additional exercises will be introduced and as well as a comprehensive home exercise program upon discharge, if needed, ?to ensure carryover of functional gains achieved in the clinic. This treatment plan has been reviewed and agreement upon by the patient.
--- NOTE | 2024-03-09 13:47 | PTOPDC ---
Assessment and note entered by Reshma Aranda, PT Evaluation Information Assessment Status Discharge Diagnosis L knee OA Other ICD-10 Condition Codes ( M17.12 PT) Onset 01/05/24 Subjective Information Airam Dela Cruz reports her left knee is feeling better. She was at the doctor yesterday who gave her the injections and she told her today was her last PT session. Airam feels her left knee is no longer holding her back from doing what she wants to do and she even did not have increased pain with the recent stormy weather like she used to. She feels she can continue the exercises on her own now. Reported Pain Level Pain Score 0: Self Report Pain Score 2: Self Report Assessment PT Clinical Summary Airam Dela Cruz has completed 6 skilled PT visits . She is reporting decreased left knee pain and improved function since initiating PT and undergoing gel injections. She notes she can perform all activity that she wants to and she only has occasional knee pain. She demonstrates improved left knee AROM, improved left knee and hip strength, improved balance, and improved gait. She continues to have trendelenberg gait pattern however, she continues to have weakness in the hip abductors. She is independent in a home exercise program to continue hip abduction strengthening, knee and hip strengthening, LE flexibility, and balance. She has met 6 out of 9 goals and has made progress toward remaining goals. She will discharged to an independent [facility] to continue. Plan of Care PT Services Indicated No
--- NOTE | 2024-03-09 13:47 | OPREHPOC ---
Outpatient Therapy Plan of Care This is a Multidisciplinary Plan of Care that may contain components documented by all disciplines (PT, OT, and ST.) PT Problem 1 PT Problem #1 Knowledge Deficit PT Goal 1 Goal 1. independent and compliant with HEP Target Visit 3 Progress Met PT Problem 2 PT Problem #2 Pain PT Goal 1 Goal 1. patient to report pain at worst to be no more than 3/10 since being in skilled PT Target Visit 6 Progress Met PT Problem 3 PT Problem #3 Impaired Strength PT Goal 1 Goal 1. 4+/5 or better bilateral hip flex -met 2. 4+/5 or better bilateral hip abd -not met 3. 5/5 L knee ext -met Target Visit 6 Progress Partially Met PT Problem 4 PT Problem #4 Impaired Functional Mobil PT Goal 1 Goal 1. LEFS to display 25% or less functional deficits -progress towards, (26.25%) 2. patient to complete greater than 1000ft ambulation in 6 minutes -progress towards (960 feet) 3. patient to display decreased L Trendelenburg lean during ambulation -met 4. reciprocal ambulation up and down 1 flight of steps -met Target Visit 6 Progress Partially Met
== END 2024-03-09 15:43 | disposition home or self-care (01) ==
LOC: CHSPT 12:55
PROVIDERS: Visit Provider Nurse Practitioner Family
DX: M17.12 Unilateral primary osteoarthritis, left knee (principal)
CPT/HCPCS: 97110; 97112; 97161; 97750

== ENCOUNTER 2024-03-01 09:18 | Outpatient (CLI) | payer MEDICARE, SELFPAY ==
[2024-03-01 09:34] LABS: Hematocrit 35.9 % (35.0-42.0); Hemoglobin 11.6 g/dL (11.7-13.8); Mean Corpuscular HGB Conc 32.3 g/dL (32-36); Mean Corpuscular Volume 89.8 fL (78.0-102.0); Mean Platelet Volume 9.3 fl (9.2-11.8); Platelet Count Result 258 K/mm3 (150-420); Red Cell Distribution Width 14.2 % (11.6-14.4)
[2024-03-01 10:44] LABS: Alanine Aminotransferase 26 U/L (14-59); Albumin Level 4.3 g/dL (3.4-5.0); Alkaline Phosphatase 71 U/L (46-116); Anion Gap 11 mmol/L (4-12); Aspartate Amino Transferase 18 U/L (15-37); Bilirubin,Total 0.4 mg/dL (0.00-1.00); Blood Urea Nitrogen 38 mg/dL (7-18); Calcium 10.1 mg/dL (8.5-10.1); Carbon Dioxide 26 mmol/L (21-32); Chloride 98 mmol/L (98-108); Estimated Glomerular Filt Rate 36; Glucose 133 mg/dL (70-99); Osmolality Calculated 291 mOsm/kg (285-295); Potassium 5.5 mmol/L (3.5-5.1); Sodium 135 mmol/L (136-145); Total Protein 7.8 g/dL (6.4-8.2)
== END 2024-03-01 09:19 | disposition home or self-care (01) ==
LOC: CHSLAB 09:21
PROVIDERS: PCP Internal Medicine; Visit Provider Internal Medicine
DX: I10 Essential (primary) hypertension (principal); I73.9 Peripheral vascular disease, unspecified; R09.89 Other specified symptoms and signs involving the circulatory and respiratory systems
CPT/HCPCS: 36415; 80053; 85027

== ENCOUNTER 2024-03-02 07:58 | Outpatient (CLI) | payer MEDICARE, SELFPAY ==
--- NOTE | ~2024-03-02 | US_ITS ---
EXAMINATION: US aorta DATE: 03/02/2024 08:53 INDICATION: Abdominal aortic aneurysm screening. Family history of abdominal aortic aneurysm. TECHNIQUE: Grayscale, color Doppler, and pulsed Doppler images of the aorta and common iliac arteries were obtained. COMPARISON: CT abdomen and pelvis 11/30/2022 FINDINGS: The aorta is normal in caliber. The right common iliac artery is normal in caliber. The left common i liac artery is normal in caliber. IMPRESSION: 1. No abdominal aortic aneurysm. Reviewed, dictated and finalized at location A.
--- NOTE | ~2024-03-02 | US_ITS ---
EXAMINATION: US carotid duplex BI DATE: 03/02/2024 08:54 INDICATION: Carotid bruit TECHNIQUE: Grayscale, color Doppler, and pulsed Doppler images of the cervical carotid arteries were obtained. The degree of vessel stenosis is placed in one of the following categories: normal, <50%, 5 0-69%, >=70% but less than near-occlusion, near-occlusion, or total occlusion. Note that percent sten osis relative to normal distal artery lumen diameter is indirectly measured from velocity measurement s as described by Jay Jay, et al. Radiology 2003; [id number]. COMPARISON: None. FINDINGS: RIGHT: The right common carotid artery (CCA) peak systolic velocity (PSV) is 57 cm/s. The right internal car otid artery (ICA) PSV is 79 cm/s. The right ICA end-diastolic velocity (EDV) is 41 cm/s. The right IC A/CCA PSV ratio is 1.4. Grayscale and color Doppler images yield an estimate of <50% diameter reducti on from plaque in the ICA. The external carotid artery (ECA) PSV is 81 cm/s. There is antegrade flow in the right vertebral artery. LEFT: The left CCA PSV is 84 cm/s. The left ICA PSV is 71 cm/s. The left ICA EDV is 39 cm/s. The left ICA/C CA PSV ratio is 0.8. Grayscale and color Doppler images yield an estimate of <50% diameter reduction from plaque in the ICA. The ECA PSV is 76 cm/s. There is antegrade flow in the left vertebral artery. IMPRESSION: 1. <50% stenosis in the right internal carotid artery. 2. <50% stenosis in the left internal carotid artery. Reviewed, dictated and finalized at location B.
--- NOTE | ~2024-03-02 | US_ITS ---
EXAMINATION: US arterial ankle brachial ind DATE: 03/02/2024 08:54 INDICATION: Peripheral arterial occlusive disease. TECHNIQUE: Segmental pressures and plethysmographic and Doppler waveforms of the brachial and lower e xtremity arteries were obtained. COMPARISON: None. FINDINGS: Right and left brachial artery pressures of 109 mm Hg and 104 mm Hg, respectively, are concordant (no rmal difference <= 30 mmHg). The right ankle-brachial index (WILDA) is 1.38 (normal >= 0.9-1.0). The right great toe-brachial index (TBI) is 0.97 (normal >= 0.65). Arterial Doppler waveforms are triphasic with brisk systolic upstroke s at both right posterior tibial and dorsalis pedis arteries. The left WILDA is 1.22. The left TBI is 0.99. Arterial Doppler waveforms are triphasic with brisk systo lic upstrokes at both left posterior tibial and dorsalis pedis arteries. IMPRESSION: 1. Normal study with normal bilateral ABIs and TBIs. Reviewed, dictated and finalized at location B.
== END 2024-03-02 07:59 | disposition home or self-care (01) ==
PROVIDERS: PCP Internal Medicine; Visit Provider Internal Medicine
DX: I65.23 Occlusion and stenosis of bilateral carotid arteries (principal); I10 Essential (primary) hypertension; I73.9 Peripheral vascular disease, unspecified; R09.89 Other specified symptoms and signs involving the circulatory and respiratory systems
CPT/HCPCS: 76775; 93880; 93922

== ENCOUNTER 2024-09-22 13:39 | Outpatient (RCR) | payer MEDICARE, SELFPAY ==
--- NOTE | 2024-09-22 14:29 | OPREHPOC ---
Outpatient Therapy Plan of Care This is a Multidisciplinary Plan of Care that may contain components documented by all disciplines (PT, OT, and ST.) PT Problem 1 PT Problem #1 Knowledge Deficit PT Goal 1 Goal / Goal Update 1. independent and compliant with HEP Target Visit 4 PT Problem 2 PT Problem #2 Impaired Range of Motion PT Goal 1 Goal / Goal Update 1. 0-110 degrees active L knee rom Target Visit 8 PT Problem 3 PT Problem #3 Impaired Strength PT Goal 1 Goal / Goal Update 1. 4+/5 or better L hip flex 2. 5/5 L knee ext Target Visit 8 PT Problem 4 PT Problem #4 Impaired Functional Mobility PT Goal 1 Goal / Goal Update 1. patient to ambulate with normal gait mechanics and no trendelenburg lean 2. patient to ambulate up and down steps with reciprocal mechanics 3. LEFS to display 20% or less functional deficits 4. patient to get up from chair without need for UE assist on chair arms Target Visit 8
--- NOTE | 2024-09-22 14:30 | PTOPEVAL1 ---
Assessment and note entered by JT File, PT Evaluation Information Assessment Status Evaluation ICD-10 Condition Codes (PT) Pain in left knee M25.562 Onset 09/14/24 Subjective Information patient reports she has been having pain in the L knee for a little while now. she reports the pain has been pretty lower lately, but she is doing a series of injections to the L knee, and was told she should get back to therapy. she reports she is trying her best to avoid replacement of the L knee. she reports when sitting in too low of a chair it is difficult getting up. she reports she has to take steps one at a time. Reported Pain Level Pain Score 2: Self Report Assessment PT Clinical Summary mrs. salazar is a 69 yo woman who presents to skilled PT services for evaluation and treatment of L knee pain. she is currently receiving injection treatment of the L knee, and it was advised she return to skilled PT while doing this treatment. she was found to have limited L knee rom, L hip and L knee weakness, and abnormal gait mechanics. she will benefit from continued skilled PT to address these objective/functional deficits to return to her prior level functional activity performance/quality of life. Plan of Care Interventions Electrical Stimulation,Gait Training,Hot Pack/Cold Pack,Manual Therapy,Neuro Re-education,Patient/ Caregiver Education,Therapeutic Activities, Therapeutic Exercise PT Services Indicated Yes Treatment Frequency and 2x weekly for 8 visits Duration These treatments will address the objective and functional deficits as defined above. The patient will be advanced safely and appropriately in order for the patient to progress towards his/her prior level of function. Additional exercises will be introduced and as well as a comprehensive home exercise program upon discharge, if needed, ?to ensure carryover of functional gains achieved in the clinic. This treatment plan has been reviewed and agreement upon by the patient.
--- NOTE | 2024-10-18 10:12 | OPREHPOC ---
Outpatient Therapy Plan of Care This is a Multidisciplinary Plan of Care that may contain components documented by all disciplines (PT, OT, and ST.) PT Problem 1 PT Problem #1 Knowledge Deficit PT Goal 1 Goal / Goal Update 1. independent and compliant with HEP Target Visit 4 Progress Met PT Problem 2 PT Problem #2 Impaired Range of Motion PT Goal 1 Goal / Goal Update 1. 0-110 degrees active L knee rom Target Visit 12 Progress Not Met PT Problem 3 PT Problem #3 Impaired Strength PT Goal 1 Goal / Goal Update 1. 4+/5 or better L hip flex 2. 5/5 L knee ext Target Visit 12 Progress Not Met PT Problem 4 PT Problem #4 Impaired Functional Mobility PT Goal 1 Goal / Goal Update 1. patient to ambulate with normal gait mechanics and no trendelenburg lean. not met 2. patient to ambulate up and down steps with reciprocal mechanics. not met 3. LEFS to display 20% or less functional deficits . not met 4. patient to get up from chair without need for UE assist on chair arms. met Target Visit 12 Progress Partially Met
--- NOTE | 2024-10-18 10:12 | PTOPREEVAL ---
Assessment and note entered by JT File, PT Evaluation Information Assessment Status Re-evaluation ICD-10 Condition Codes (PT) Pain in left knee M25.562 Onset 09/14/24 Subjective Information patient reports the knee is hurting a bit more today. she reports she does have one more injection tomorrow. she reports she has felt better since getting injections and starting PT. it is easier to get up and down from a chair. she reports she is still trying her best to put off the knee replacement as long as she can. Reported Pain Level Pain Score 3: Self Report Assessment PT Clinical Summary mrs. salazar presents to skilled PT services for her 8th skilled PT visit of the L knee. she displays progress towards goals, but still lacking achievement of strength, rom, and gait goals. she has one last injection tomorrow, and would benefit from continued skilled PT after this injection to help improve her functional activity performance and achieve her goals for skilled PT. Plan of Care Interventions Electrical Stimulation,Gait Training,Hot Pack/Cold Pack,Manual Therapy,Neuro Re-education,Patient/ Caregiver Education,Therapeutic Activities, Therapeutic Exercise PT Services Indicated Yes Treatment Frequency and continue skilled PT 1x weekly for 4 more visits Duration These treatments will address the objective and functional deficits as defined above. The patient will be advanced safely and appropriately in order for the patient to progress towards his/her prior level of function. Additional exercises will be introduced and as well as a comprehensive home exercise program upon discharge, if needed, ?to ensure carryover of functional gains achieved in the clinic. This treatment plan has been reviewed and agreement upon by the patient.
--- NOTE | 2024-11-14 10:50 | OPREHPOC ---
Outpatient Therapy Plan of Care This is a Multidisciplinary Plan of Care that may contain components documented by all disciplines (PT, OT, and ST.) PT Problem 1 PT Problem #1 Knowledge Deficit PT Goal 1 Goal / Goal Update 1. independent and compliant with HEP Target Visit 4 Progress Met PT Problem 2 PT Problem #2 Impaired Range of Motion PT Goal 1 Goal / Goal Update 1. 0-110 degrees active L knee rom Target Visit 12 Progress Partially Met PT Problem 3 PT Problem #3 Impaired Strength PT Goal 1 Goal / Goal Update 1. 4+/5 or better L hip flex 2. 5/5 L knee ext Target Visit 12 Progress Met PT Problem 4 PT Problem #4 Impaired Functional Mobility PT Goal 1 Goal / Goal Update 1. patient to ambulate with normal gait mechanics and no trendelenburg lean. met 2. patient to ambulate up and down steps with reciprocal mechanics. met 3. LEFS to display 20% or less functional deficits . not met 4. patient to get up from chair without need for UE assist on chair arms. met Target Visit 12 Progress Partially Met
--- NOTE | 2024-11-14 10:50 | PTOPDC ---
Assessment and note entered by Oralia Hernandez, PT Evaluation Information Assessment Status Discharge ICD-10 Condition Codes (PT) Pain in left knee M25.562 Onset 09/14/24 Subjective Information Erika reports 90% overall improvement since beginning therapy. She denies pain in the knee and is able to get out of chairs, pick objects up off the ground, and walk up/down stairs reciprocally. She notes that she has to use a handrail when navigating steps and is somewhat cautious but she' s very happy with her improvement. Reported Pain Level Pain Score 0: Self Report Assessment PT Clinical Summary Mrs. Dela Cruz has attended 12 total skilled physical therapy visits addressing left knee pain. She no longer has knee pain and is able to rise out of a chair, pick objects up off the floor, and go up/down stairs reciprocally without difficulty . She has maintained independence with her HEP and has met or partially met all therapeutic goals set for her, and therefore skilled PT intervention is no longer indicated. Plan of Care PT Services Indicated No
== END 2024-11-14 20:00 | disposition home or self-care (01) ==
LOC: CHSPT 13:39
PROVIDERS: PCP Nurse Practitioner Family; Visit Provider Nurse Practitioner Family
DX: M25.562 Pain in left knee (principal)
CPT/HCPCS: 97110; 97112; 97150; 97161; 97530

== ENCOUNTER 2025-04-21 07:54 | Outpatient (CLI) | payer MEDICARE, SELFPAY ==
--- OUTSIDE RECORDS SUMMARY | 2025-04-20 10:00 | XMS_ITS | Encounter Summary ---
Author Organization [facility] Healthcare Address [address] [place] [address] Care Team Providers Care Interactive Art Director Name Role Phone Jordan Toth MD Primary Care Provider [phone] Lakesha Dover MD Unavailable Thang Garcia MD Unavailable [phone] Miki Zheng OD Unavailable Reason for Visit * Reason Comments Follow-up TYPE 2 DM Encounter Details Date Type Department Care Team (Latest Contact Info) Description 04/20/2025 10:00 AM CDT Office Visit [facility] Diabetes and Endocrinology [address] [place] [phone] Khushboo Mendez, MANAGER GREEN [id number] [facility] [address] [place] [address] Type 2 diabetes mellitus with hyperglycemia, without long-term current use of insulin (HCC) (Primary Dx); Hypertension associated with diabetes (HCC); Mixed diabetic hyperlipidemia associated with type 2 diabetes mellitus (CMS/HCC) (HCC); Diabetic polyneuropathy associated with type 2 diabetes mellitus (HCC); Acquired hypothyroidism Social History Tobacco Use Types Packs/Day Years Used Date Smoking Tobacco: Former Cigarettes Smokeless Tobacco: Never Alcohol Use Standard Drinks/Week Comments Yes 0 (1 standard drink = 0.6 oz pur e alcohol) PHQ-2 Answer Date Recorded PHQ-2 Total Score (If total score is 3 or more points, staff should administer the PHQ-9) 0 06/12/2022 Personal Safety Answer Date Recorded Have you ever been in or are you currently in a harmful physical or emotional relationship or is someone making you feel afraid or unsafe? 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 Gender Identity Not on file Sexual Orientation Not on file documented as of this encounter Last Filed Vital Signs Vital Sign Reading Time Taken Comments Blood Pressure 110/84 04/20/2025 9:49 AM CDT Pulse 98 04/20/2025 9:49 AM CDT Temperature - - Respiratory Rate 18 04/20/2025 9:49 AM CDT Oxygen Saturation - - Inhaled Oxygen Concentration - - Weight 108.1 kg (238 lb 4.8 oz) 04/20/2025 9:49 AM CDT Height 162.6 cm (5' 4) 04/20/2025 9:49 AM CDT Body Mass Index 40.9 04/20/2025 9:49 AM CDT documented in this encounter Patient Instructions * Patient Instructions* Khushboo Mendez NP - 04/20/2025 10:00 AM CDT Please stop at [facility] for labs at your convenience. I'll send [employer] message once I receive/review them. No changes. Great job. Your A1c has improved from 8.0% last fall to now 7.0%! Current medications: Metformin XR 1000mg twice daily before meals Ozempic 0.5mg weekly documented in this encounter Progress Notes * Khushboo Mendez NP - 04/20/2025 10:00 AM CDT Images from the original note were not included. [facility] Diabetes Follow Up Visit Subjective/Objective Patient ID: Airam Dela Cruz is a 69 y.o. female who comes in today to our Endocrinology clinic to follow up for DM management. Chief Complaint Follow-up (TYPE 2 DM) HPI Diabetes complications and/or comorbidity include: T2DM dx'd around 2008, HTN, HLD, hypothyroidism Current medications: Metformin XR 1000mg twice daily before meals Ozempic 0.5mg weekly (PAP) Intolerance to: Trulicity (GI) Dietary habits: 2-3 meals/day. Decreased intake with Ozempic. Only has BK 2x/wk. Reports stress eating lately. 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 Limited d/t chronic L knee pain. Watchespedometer on phone; typically 4-5k/day. Has new 3 wheel bike & she loves it. Home CBG monitoring results: checks BG maybe every 2 weeks approximately. Mornings 102-151. No hypoglycemia. Neuropathy: bilat pedal . Lyrica 100mg bid (for back). Last foot exam: 12/13/24 Statin therapy: Yes. Atorvastatin 20mg. Last lipid panel: 06/17/24 LDL=82, ET=443. Nephropathy: On TONY-I / ARB???s: Yes. Losartan 25mg. Last MA: 08/02/24 (18). Last creat/GFR: 06/17/24 GFR=42, CR=1.37. Retinopathy: Date of last eye examination: 10/10/24 no DMR/DME [facility]. Hypothyroidism: Currently on levothyroxine 50 mcg 6 days/wk. Airam states that she is taking the medication regularly, without skipping or forgetting any days. Component Latest Ref Rng 06/17/2024 Scribed TSH 0.40 - 4.50 mcU/mL 0.78 (E) Component Latest Ref Rng 12/13/2020 11/28/2021 10/08/2023 TSH 0.30 - 4.20 mcIUnit/mL 0.48 1.16 1.51 Component Latest Ref Rng 12/13/2020 11/28/2021 10/08/2023 Free T4 0.90 - 1.70 ng/dL 1.5 1.27 1.39 Wt Readings from Last 3 Encounters: 04/20/25 108.1 kg (238 lb 4.8 oz) 12/13/24 107 kg (236 lb) 08/02/24 108.4 kg (239 lb) Labs: Last A1c: Recent Labs Lab Units 04/20/25 0949 HEMOGLOBIN A1C POC % 7.0* Component Latest Ref Rng 02/04/2024 08/02/2024 12/13/2024 Hgb A1C, POC 4.0 - 5.6 % 7.1 8.0 7.1 Lab Results Component Value Date MICROALBUR <0.2 12/13/2020 Lab Results Component Value Date ALBCREATRATU <18 08/02/2024 Lab Results Component Value Date MALBCRTRAT NOTE 12/13/2020 Lipid profile within the last year: Lab Results Component Value Date CHOL 185 02/04/2024 Lab Results Component Value Date TRIG 316 (H) 02/04/2024 Lab Results Component Value Date HDL 45 02/04/2024 Lab Results Component Value Date LDLCALC 77 02/04/2024 Vitals: 04/20/25 0949 BP: 110/84 BP Location: Right arm Patient Position: Sitting Pulse: 98 Resp: 18 Weight: 108.1 kg (238 lb 4.8 oz) Height: 162.6 cm (5' 4) Physical Exam Vitals and nursing note reviewed. Constitutional: Appearance: Normal appearance. She is well-developed. She is obese. HENT: Head: Normocephalic. Right Ear: Hearing normal. Left Ear: Hearing normal. Eyes: General: Lids are normal. Gaze aligned appropriately. Neck: Thyroid: No thyromegaly. Trachea: Trachea and phonation normal. No tracheal deviation. Cardiovascular: Rate and Rhythm: Normal rate and regular rhythm. No extrasystoles are present. Heart sounds: Normal heart sounds, S1 normal and S2 normal. No murmur heard. Pulmonary: Effort: Pulmonary effort is normal. Breath sounds: Normal breath sounds and air entry. Skin: General: Skin is warm and dry. Neurological: Mental Status: She is alert and oriented to person, place, and time. Mental status is at baseline. Psychiatric: Mood and Affect: Mood normal. Behavior: Behavior is cooperative. Assessment/Plan Diagnoses and all orders for this visit: Type 2 diabetes mellitus with hyperglycemia, without long-term current use of insulin (HCC) (Primary) Assessment & Plan: Chronic problem. A1c at goal & improved from 7.1% 12/13/24 to now 7.0%. no changes at this time. Current medications: Metformin XR 1000mg twice daily before meals Ozempic 0.5mg weekly (PAP) UTD on DM eye exam (10/10/24 no DMR/DME [facility]). Will update labs. Verified that she uses mychart. Aware to check results/results letter in [email or web address]Will contact by phone if needed. Discussed with Airam Dela Cruz: Strive for regular exercise (30min most days) and diet (get at least 4-5 servings of fruit and veggies daily, avoid processed foods, increase lean protein intake and decrease carb portions as well asfruit juices, regular soda & desserts). Watch carbs and simple sugars. Check the blood sugar: daily Check the feet daily for skin breakdown and infection. Orders: - POCT hemoglobin A1c - POCT glucose - Lipid panel; Future - Comprehensive metabolic panel; Future - Albumin Creatinine Ratio, Urine; Future Hypertension associated with diabetes (HCC) Assessment & Plan: Chronic problem. Controlled on current Carvedilol 25mg bid, spironolactone-HCTZ 25-25mg daily Will update labs. Verified that she uses mychart. Aware to check results/results letter in [email or web address].Will contact by phone if needed. 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 At goal on current Atorvastatin 20mg. Last lipid panel: 06/17/24 LDL=82, CQ=003. Will update labs. Verified that she uses mychart. Aware to check results/results letter in [email or web address].Will contact by phone if needed. Orders: - Lipid panel; Future Diabetic polyneuropathy associated with type 2 diabetes mellitus (HCC) Assessment & Plan: Chronic problem. Currently taking Lyrica 100mg bid Reviewed foot care; needs to lotion daily. Aware to check feet nightly, not to go barefoot. Acquired hypothyroidism Assessment & Plan: Chronic problem. Clinically & biochemically euthyroid. Currently taking levothyroxine 50mcg 6 days/wk. Aware to take 1st thing in morning, 30-60 minutes before food/drink/other medications. Will update labs. Verified that she uses mychart. Aware to check results/results letter in [email or web address]Will contact by phone if needed. Orders: - T4, free; Future - TSH; Future Khushboo Mendez NP documented in this encounter Miscellaneous Notes * Assessment & Plan Note - Khushboo Mednez NP - 04/20/2025 10:02 AM CDT Associated Problem(s): Type 2 diabetes mellitus with hyperglycemia, without long-term current use of insulin (HCC) Chronic problem. A1c at goal & improved from 7.1% 12/13/24 to now 7.0%. no changes at this time. Current medications: Metformin XR 1000mg twice daily before meals Ozempic 0.5mg weekly (PAP) UTD on DM eye exam (10/10/24 [facility] Will update labs. Verified that she uses mychart. Aware to check results/results letter in [employer].Will contact by phone if needed. Discussed with Airam Dela Cruz: Strive for regular exercise (30min most days) and diet (get at least 4-5 servings of fruit and veggies daily, avoid processed foods, increase lean protein intake and decrease carb portions as well asfruit juices, regular soda & desserts). Watch carbs and simple sugars. Check the blood sugar: daily Check the feet daily for skin breakdown and infection. * Assessment & Plan Note - Khushboo Mendez NP - 04/20/2025 10:02 AM CDT Associated Problem(s): Mixed diabetic hyperlipidemia associated with type 2 diabetes mellitus (CMS/HCC) (HCC) Chronic problem. At goal on current Atorvastatin 20mg. Last lipid panel: 06/17/24 LDL=82, DV=120. Will update labs. Verified that she uses mychart. Aware to check results/results letter in [employer].Will contact by phone if needed. * Assessment & Plan Note - Khushboo Mendez NP - 04/20/2025 10:01 AM CDT Associated Problem(s): Hypothyroidism Chronic problem. Clinically & biochemically euthyroid. Currently taking levothyroxine 50mcg 6 days/wk. Aware to take 1st thing in morning, 30-60 minutes before food/drink/other medications. Will update labs. Verified that she uses mychart. Aware to check results/results letter in [employer].Will contact by phone if needed. * Assessment & Plan Note - Khushboo Mendez NP - 04/20/2025 10:01 AM CDT Associated Problem(s): Hypertension associated with diabetes (HCC) Chronic problem. Controlled on current Carvedilol 25mg bid, spironolactone-HCTZ 25-25mg daily Will update labs. Verified that she uses mychart. Aware to check results/results letter in [employer]Will contact by phone if needed. * Assessment & Plan Note - Khushboo Mendez NP - 04/20/2025 10:01 AM CDT Associated Problem(s): Diabetic polyneuropathy associated with type 2 diabetes mellitus (HCC) Chronic problem. Currently taking Lyrica 100mg bid Reviewed foot care; needs to lotion daily. Aware to check feet nightly, not to go barefoot. documented in this encounter Plan of Treatment Scheduled Orders Name Type Priority Associated Diagnoses Orde r Schedule T4, free Lab Routine Acquired hypothyroidism Expected: 04/23/2025, Expires: 04/20/2026 TSH Lab Routine Acquired hypothyroidism Expected: 04/23/2025, Expires: 04/20/2026 Lipid panel Lab Routine Type 2 diabetes mellitus with hyperglycemia, without long-term current use of insulin (HCC) Mixed diabetic hyperlipidemia associated with type 2 diabetes mellitus ([facility]/HCC) (HCC) Expected: 04/20/2025, Expires: 04/20/2026 Comprehensive metabolic panel Lab Routine Type 2 diabetes mellitus with hyperglycemia, without long-term current use of insulin ([facility]) Hypertension associated with diabetes ([facility]) Expected: 04/20/2025, Expires: 04/20/2026 Albumin Creatinine Ratio, Urine Lab Routine Type 2 diabetes mellitus with hyperglycemia, without long-term current use of insulin ([facility]) Expected: 04/20/2025, Expires: 04/20/2026 documented as of this encounter Procedures Procedure Name Priority Date/Time Associated Diagnosis Comments POCT HEMOGLOBIN A1C Routine 04/20/2025 9 :49 AM CDT Type 2 diabetes mellitus with hyperglycemia, without long-term current use of insulin ([facility]) POCT GLUCOSE Routine 04/20/2025 9:49 AM CDT Type 2 diabetes mellitus with hyperglycemia, without long-term current use of insulin ([facility]) documented in this encounter Results * (ABNORMAL) POCT glucose (04/20/2025 9:49 AM CDT) Glucose Blood, POC 206 Normal Fasting 70 - 100, Random <200 mg/dL Comment:PPG 1.5 Hrs Blood 04/20/2025 9:49 AM CDT us Khushboo Mendez NP POINT OF CARE TEST ORDERA BLES Final Result * (ABNORMAL) POCT hemoglobin A1c (04/20/2025 9:49 AM CDT) Hemoglobin A1C, POC 7.0(A) 4.0 - 5.6 % Capillary blood 04/20/2025 9 :49 AM CDT us Khushboo Mendez NP POINT OF CARE TEST ORDERA BLES Final Result documented in this encounter Visit Diagnoses Diagnosis Type 2 diabetes mellitus with hyperglycemia, without long-term current use of insulin ([facility])- Primary Hypertension associated with diabetes ([facility]) Unspecified essential hypertension Mixed diabetic hyperlipidemia associated with type 2 diabetes mellitus (CMS/HCC) (HCC) Diabetic polyneuropathy associated with type 2 diabetes mellitus (HCC) Acquired hypothyroidism Unspecified hypothyroidism documented in this encounter Care Teams Interactive Art Director Relationship Specialty Start Date End Date Jordan Toth MD PCP - General 11/28/16 [place] [id number] [address] Consulting Physician Endocrinology Diabetes & Metabolism 04/05/19 [place] [id number] [address] Referring Physician Nephrology 04/05/19 [place] [id number] [address] [id number] Ophthalmology 04/05/19 documented as of this encounter
--- OUTSIDE RECORDS SUMMARY | 2025-04-21 08:00 | XMS_ITS | Clinical Summary ---
Author Organization [facility] Address [address] [place] [id number] Care Team Providers Care Assistant Child Care Teacher Name Role Phone Unavailable Primary Care Provider Unavailabl e Social History Tobacco Use Types Packs/Day Years Used Date Smoking Tobacco: Never Assessed Comments Unknown Sex and Gender Information Value Date Recorded Sex Assigned at Not on file Legal Sex Female 11:32 PM CDT Gender Identity Not on file Sexual Orientation Not on file Plan of Treatment Health Maintenance Due Date Last Done Comments Colorectal Cancer Screening Colonoscopy (10 Years) 1954 Hepatitis C 1972 DTaP, Tdap and Td Vaccines ( 1 - Tdap) 1973 Mammogram Screening 1994 Pneumococcal Vaccine: 50+ Ye ars (1 of 1 - PCV) 2004 Zoster Vaccines (1 of 2) 2004 Dexa Scan (General) 2019 COVID-19 Vaccine ( - 2023-2 5 season) 2024 RSV Immunization or 60+ Years (1 - 1-dose 75+ series) 2029 Meningococcal B Vaccine Aged Out No l onger eligible based on patient's age to complete this topic Meningococcal Vaccine Aged Out No ashley deborah eligible based on patient's age to complete this topic RSV Immunizations Under 20 Months Aged Out No longer eligible based on patient's age to complete this topic Advance Directives Documents on File Type Date Recorded Patient Attending Radiologist Expl anation Advance Directives and Livin g Will 10/23/2015 ADVANCE DIRECTIVE Advance Directives and Livin g Will 07/25/2014 ADVANCE DIRECTIVE
--- OUTSIDE RECORDS SUMMARY | 2025-04-21 08:00 | XMS_ITS | Clinical Summary ---
Author Organization [facility] Virtual Care Address [address] [place] [id number] Phone Care Team Providers Care Cash Processing Specialist Name Role Phone Jordan Toth MD Primary Care Provider [phone] Lakesha Dover MD Unavailable Thang Garcia MD Unavailable [phone] Miki Zheng OD Unavailable [phone] Allergies Active Allergy Reactions Criticality Noted Date Comments Cyclobenzaprine Unknown 02/13/2019 Lisinopril Unknown 02/13/2019 Meloxicam Unknown 02/13/2019 Metaxalone Unknown 02/13/2019 Pantoprazole Unknown 02/13/2019 Dfhsdhx-Dyf-Aqr Reductase Inhibitors Unknown 02/13/2019 Medications lancing device misc Use to check b/s 0 each 0 3 Active blood glucose control, normal (ONETOUCH ULTRA CONTROL) solution Use to check meter 0 each 0 3 Active cyanocobalamin (Vitamin B-12) 500 mcg tablet take 1 a day 0 0 6 Active carvedilol (COREG) 25 mg tablet Take 1 tablet (25 mg total) by mouth 2 (two) times a day with meals 8 Active allopurinoL (ZYLOPRIM) 100 mg tablet Take 1 tablet (100 mg total) by mouth daily Active acetaminophen 500 mg capsule Take 2 capsules (1,000 mg total) by mouth every 6 (six) hours as needed for pain 3 Active methocarbamoL 1,000 mg tablet Take 1,000 mg by mouth 3 (three) times a day 3 Active Additional Information Patient not taking.Reported on 04/20/2025 ferrous gluconate 324 mg (37.5 mg of elemental iron) tablet Take 1 tablet (324 mg total) by mouth daily with breakfast 3 Active apixaban (ELIQUIS) 2.5 mg tabletIndicatio ns:VTE Prophylaxis Take 1 tablet (2.5 mg total) by mouth 2 (two) times a day for 28 days 56 tablet 3 Active fluticasone propionate (FLONASE) 50 mcg/actuation nasal spray 3 Active spironolactone- hydroCHLOROthia zide (ALDACTAZIDE) 25-25 mg per tablet 4 Active traMADoL (ULTRAM) 50 mg tablet 2 3 Active amoxicillin 500 mg capsule 4 Active blood glucose diagnostic stripIndication s:Type 2 diabetes mellitus with hyperglycemia, without long-term current use of insulin ([facility]) Check blood sugar daily 100 strip 3 4 Active lancets miscIndications :Type 2 diabetes mellitus with hyperglycemia, without long-term current use of insulin ([facility]) Check blood sugar daily 100 each 3 4 Active blood-glucose meter kitIndications: Type 2 diabetes mellitus with hyperglycemia, without long-term current use of insulin ([facility]) Check blood sugar daily 1 kit 4 Active atorvastatin (LIPITOR) 20 mg tabletIndicatio ns:Type 2 diabetes mellitus with hyperglycemia, without long-term current use of insulin ([facility]) TAKE ONE TABLET BY MOUTH DAILY 90 tablet 3 4 Active metFORMIN XR (GLUCOPHAGE XR) 500 mg 24 hr tablet TAKE TWO TABLETS BY MOUTH TWICE A DAY 360 tablet 1 4 Active levothyroxine (SYNTHROID) 50 mcg tabletIndicatio ns:Type 2 diabetes mellitus with hyperglycemia, without long-term current use of insulin ([facility]) TAKE ONE TABLET BY MOUTH DAILY 90 tablet 5 Active pregabalin (LYRICA) 100 mg capsule TAKE ONE CAPSULE BY MOUTH TWICE A DAY 60 capsule 5 5 Active semaglutide (OZEMPIC) 0.25 mg or 0.5 mg (2 mg/3 mL) pen injector injectionIndica tions:Type 2 diabetes mellitus with hyperglycemia, without long-term current use of insulin ([facility]) Inject 0.5 mg under the skin once a week 5 Active semaglutide 0.25 mg or 0.5 mg (2 mg/3 mL) pen injector injection Inject 0.5 mg under the skin once a week 3 mL 5 025 Discontin ued([facility] justus order) Ozempic 0.25 mg or 0.5 mg(2 mg/1.5 mL) pen injector injection Inject 0.5 mg under the skin once a week 6 mL 5 025 Discontin ued(Dupli justus order) semaglutide (Ozempic) 0.25 mg or 0.5 mg(2 mg/1.5 mL) pen injector injection Inject 0.5 mg under the skin once a week 5 025 Discontin ued(Dupli justus order) Active Problems Problem Noted Date Diagnosed Date Class 3 severe obesity due t o excess calories with serious comorbidity and body mass index (BMI) of 40.0 to 44.9 in adult 08/02/2024 Assessment & Plan (08/02/2024 10:49 AM ANNUAL GIVING DIRECTOR): Discussed healthy diet and importance of regular physical activity (20- 30min/day, 150min/wk). Bydureon sent in today; will hopefully help with appetite suppression/weight loss. Diabetic polyneuropathy asso ciated with type 2 diabetes mellitus 10/08/2023 Assessment & Plan (04/20/2025 10:01 AM CDT): Chronic problem. Currently taking Lyrica 100mg bid Reviewed foot care; needs to lotion daily. Aware to check feet nightly, not to go barefoot. Assessment & Plan (12/13/2024 10:17 AM CDT): Chronic problem. Currently taking Lyrica 100mg bid Reviewed foot care; needs to lotion daily. Aware to check feet nightly, not to go barefoot. Assessment & Plan (08/02/2024 10:39 AM ANNUAL GIVING DIRECTOR): Chronic problem. Currently taking Lyrica 100mg bid Reviewed foot care; needs to lotion daily. Aware to check feet nightly, not to go barefoot. Assessment & Plan (02/04/2024 11:17 AM CDT): Foot care Continue Lyrica Assessment & Plan (10/08/2023 10:37 AM ANNUAL GIVING DIRECTOR): Chronic problem. Currently has Lyrica 100mg bid filled from pain mgmt but is no longer seeing them (no longer getting back injections). Would like to switch to our office for Lyrica refills. Asked her to send a [employer] message 1-2 weeks before she's due for a refill & we will send to her pharmacy. Aware to not go barefoot & to check feet nightly. Fracture of unspecified part of neck of left femur, subsequent encounter for closed fracture with routine healing 12/18/2022 12/26/2022 Gout, unspecified 12/18/2022 12/26/2022 Iron deficiency anemia, unspecified 12/18/2022 12/26/2022 Presence of left artificial hip joint 12/18/2022 12/26/2022 Acute pain due to trauma 12/03/2022 Closed fracture of multiple ribs of left side ABLA (acute blood loss anemia) 12/03/2022 REG (acute kidney injury) 12/03/2022 Periprosthetic fracture arou nd internal prosthetic left hip joint, initial encounter 12/01/2022 Preoperative cardiovascular examination 04/04/20 22 Nonspecific abnormal results of function study o f kidney 03/17/2019 12/26/2022 Hypomagnesemia 02/17/2019 12/26/2022 Mixed diabetic 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) 10/07/2018 Assessment & Plan (04/20/2025 10:02 AM CDT): Chronic problem. At goal on current Atorvastatin 20mg. Last lipid panel: 06/17/24 LDL=82, WJ=237. Will update labs. Verified that she uses [facility]. Aware to check results/results letter in [employer]. Will contact by phone if needed. Assessment & Plan (12/13/2024 10:19 AM CDT): Chronic problem. At goal on current Atorvastatin 20mg. Last lipid panel: 06/17/24 LDL=82, OT=940. Assessment & Plan (08/02/2024 10:58 AM ANNUAL GIVING DIRECTOR): Chronic problem. At goal on current Atorvastatin 20mg. Last lipid panel: 02/04/24 LDL=77, GK=605. Had labs completed 06/16/24 by PCP; will get copy of results. Assessment & Plan (10/08/2023 10:04 AM ANNUAL GIVING DIRECTOR): Chronic problem. At goal on current Atorvastatin 20mg. Last lipid panel: 12/01/22 LDL=55, LR=610. Assessment & Plan (06/11/2023 12:58 PM CDT): Chronic, well-controlled Continue statin therapy with atorvastatin Assessment & Plan (06/12/2022 12:39 PM CDT): Chronic, well controlled Low fat Low cholesterol diet Continue statin therapy Assessment & Plan (11/28/2021 10:20 AM CDT): Chronic, well controlled Low fat Low cholesterol diet Exercise Continue statin therapy Assessment & Plan (11/20/2020 1:06 PM CDT): Goal of treatment , LDL cholesterol less than 100 ( less than 70 in patients with history of heart attacks and / or strokes ) NonHDL cholesterol ( total cholesterol minus HDL cholesterol ) goal less than 130 ( less than 100 in patients with history of heart attacks and / or strokes ) Low cholesterol, low fat diet was discussed and advised. Daily exercise On statin therapy Lipids checked today Assessment & Plan (04/19/2020 4:42 PM CDT): At goal on current medications. Continue statin therapy. Assessment & Plan (10/11/2019 11:29 AM ANNUAL GIVING DIRECTOR): Goal of treatment , LDL cholesterol less than 100 ( less than 70 in patients with history of heart attacks and / or strokes ) NonHDL cholesterol ( total cholesterol minus HDL cholesterol ) goal less than 130 ( less than 100 in patients with history of heart attacks and / or strokes ) Low cholesterol, low fat diet was discussed and advised. Daily exercise On statin therapy with Lipitor Lipids checked today Assessment & Plan (04/05/2019 11:17 AM CDT): Goal of treatment , LDL cholesterol less than 100 ( less than 70 in patients with history of heart attacks and / or strokes ) NonHDL cholesterol ( total cholesterol minus HDL cholesterol ) goal less than 130 ( less than 100 in patients with history of heart attacks and / or strokes ) Low cholesterol, low fat diet was discussed and advised. Daily exercise On statin therapy Assessment & Plan (10/07/2018 10:02 AM ANNUAL GIVING DIRECTOR): Goal of treatment , LDL cholesterol less than 100 ( less than 70 in patients with history of heart attacks and / or strokes ) NonHDL cholesterol ( total cholesterol minus HDL cholesterol ) goal less than 130 ( less than 100 in patients with history of heart attacks and / or strokes ) Low cholesterol, low fat diet was discussed and advised. Daily exercise On statin therapy Class 2 severe obesity due t o excess calories with serious comorbidity and body mass index (BMI) of 36.0 to 36.9 in adult 12/31/2017 Assessment & Plan (07/02/2018 10:08 AM CDT): Importance of following diet and exercising discussed. Assessment & Plan (04/01/2018 9:51 AM CDT): Importance of following diet and exercising discussed. Assessment & Plan (01/01/2018 10:13 AM CDT): Continue with weight loss efforts with diet. Reminded to remain active over the summer when not working. Type 2 diabetes mellitus wit h hyperglycemia, without long-term current use of insulin 01/24/2014 Overview (12/04/2016): DMII WO CMP NT ST UNCNTR Assessment & Plan (04/20/2025 10:02 AM CDT): Chronic problem. A1c at goal & improved from 7.1% 12/13/24 to now 7.0%. no changes at this time. Current medications: Metformin XR 1000mg twice daily before meals Ozempic 0.5mg weekly (PAP) UTD on DM eye exam (10/10/24 no DMR/DME [facility]). Will update labs. Verified that she uses [facility]. Aware to check results/results letter in [employer]. Will contact by phone if needed. Discussed with Airam Dela Cruz: Strive for regular exercise (30min most days) and diet (get at least 4-5 servings of fruit and veggies daily, avoid processed foods, increase lean protein intake and decrease carb portions as well as fruit juices, regular soda & desserts). Watch carbs and simple sugars. Check the blood sugar: daily Check the feet daily for skin breakdown and infection. Assessment & Plan (12/13/2024 10:35 AM CDT): Chronic problem. A1c near goal & improved from 8.0% 08/02/24 to now 7.1%. no changes at this time. Current medications: Metformin XR 1000mg twice daily before meals Ozempic 0.5mg weekly (PAP) UTD on DM eye exam (10/10/24 no DMR/DME [facility]). UTD on labs. Discussed with Airam Dela Cruz: Strive for regular exercise (30min most days) and diet (get at least 4-5 servings of fruit and veggies daily, avoid processed foods, increase lean protein intake and decrease carb portions as well as fruit juices, regular soda & desserts). Watch carbs and simple sugars. Check the blood sugar: daily Check the feet daily for skin breakdown and infection. Assessment & Plan (08/02/2024 11:05 AM ANNUAL GIVING DIRECTOR): Chronic problem. A1c uncontrolled & worsened from 7.1% 02/04/24 to now 8.0%. Ozempic too expensive (>$300/mo). Will try to get Bydureon that she's been on in the past without difficulty. Current medications: Metformin XR 1000mg twice daily before meals Bydureon 2mg weekly UTD on DM eye exam (09/25/23 no DMR/DME [facility]). Scheduled 08/2024 Had labs completed 06/16/24 by PCP; will get copy of results. Discussed with Airam Dela Cruz: Strive for regular exercise (30min most days) and diet (get at least 4-5 servings of fruit and veggies daily, avoid processed foods, increase lean protein intake and decrease carb portions as well as fruit juices, regular soda & desserts). Watch carbs and simple sugars. Check the blood sugar: daily Check the feet daily for skin breakdown and infection. Assessment & Plan (02/04/2024 11:18 AM CDT): Chronic, higher hba1c Diet and exercise Continue Metformin Update GFR Update lipid profile Assessment & Plan (10/08/2023 10:29 AM ANNUAL GIVING DIRECTOR): Chronic problem. A1c remains stable at 6.7%. Ozempic too expensive (>$300/mo). Discussed possibly checking to see if Ellen is covered but wants to wait until next appt to decide. Current medications: Metformin XR 1000mg twice daily before meals DM eye exam last week. Letter sent to [facility] to get copy of report. UTD on labs. Discussed with Airam Dela Cruz: Strive for regular exercise (30min most days) and diet (get at least 4-5 servings of fruit and veggies daily, avoid processed foods, increase lean protein intake and decrease carb portions as well as fruit juices, regular soda & desserts). Watch carbs and simple sugars. Check the blood sugar: 1-2x/wk. Check the feet daily for skin breakdown and infection. Assessment & Plan (06/11/2023 12:57 PM CDT): Hba1c was Lab Results Component Value Date HGBA1C 6.7 06/11/2023 today, indicating adequate DM control Goal Hba1c and blood glucose explained Diet and exercise were advised Prevention and treatment of hyypoglcyemia were discussed with the patient Blood glucose monitoring : 2-3 x week Adjustment to medications: Continue Metformin Start Ozempic Assessment & Plan (06/12/2022 12:38 PM CDT): Well controlled Continue Metformin Diet and exercise Assessment & Plan (11/28/2021 10:21 AM CDT): Hba1c was Lab Results Component Value Date HGBA1C 6.1 11/28/2021 today, indicating adequate DM control Goal Hba1c and blood glucose explained Diet and exercise were advised Prevention and treatment of hyypoglcyemia were discussed with the patient Blood glucose monitoring : 1-2 x wk Adjustment to medications: continue metformin Assessment & Plan (11/20/2020 1:06 PM CDT): Hba1c was Lab Results Component Value Date HGBA1C 5.8 11/20/2020 today, indicating adequate DM control Goals blood sugars of 120-160 and Hba1c under 7 % was explained. 1800 calorie, consistent carb diet recommended, no more than 3-45 grams of carbs per meal, avoiding concentrated sweet drinks and rapid absorption carbs. 25-45 min daily aerobic and resistance exercise recommended Blood glucose monitoring with fingers sticks. 1-2 x week Continue Metformin Rx sent Assessment & Plan (04/19/2020 4:42 PM CDT): A1c 6.0. Continue current medication. BG goals reviewed. Continue to watch portions sizes. Recommend some form of daily activity. Assessment & Plan (10/11/2019 11:28 AM ANNUAL GIVING DIRECTOR): Hba1c was Lab Results Component Value Date HGBA1C 6.7 10/11/2019 today, indicating adequate DM control 1800 calorie, consistent carb diet recommended, no more than 3-45 grams of carbs per meal, avoiding concentrated sweet drinks and rapid absorption carbs. 25-45 min daily aerobic and resistance exercise recommended Prevention and treatment of hyypoglcyemia discussed. Blood glucose monitoring with fingers sticks Medications: continue current Assessment & Plan (04/05/2019 11:12 AM CDT): Hba1c was Lab Results Component Value Date HGBA1C 6.6 04/05/2019 today, indicating adequate DM control 1800 calorie, consistent carb diet recommended 25-45 min daily aerobic and resistance exercise recommended Prevention and treatment of hyypoglcyemia discussed. Blood glucose monitoring with fingers sticks 1-2 x day . Oral medications: continue Metformin and Bydureon Assessment & Plan (10/07/2018 10:03 AM ANNUAL GIVING DIRECTOR): Hba1c was Lab Results Component Value Date HGBA1C 6.8 10/07/2018 today, indicating adequate DM control 1800 calorie, consistent carb diet recommended 25-45 min daily aerobic and resistance exercise recommended Prevention and treatment of hyypoglcyemia discussed. Blood glucose monitoring with fingers sticks 1-2 x day . Oral medications: continue Metformin and Bydureon Assessment & Plan (07/02/2018 10:09 AM CDT): A1c 6.4. No change to medication. Discussed importance of focusing on diet and exercise, weight loss. Assessment & Plan (04/01/2018 9:53 AM CDT): A1c further improved at 6.6. FBG elevated likely d/t [employer]. No change to medication plan. Encouraged to focus on diet and exercise making sure she includes some form on daily exercise in plan. Assessment & Plan (12/31/2017 4:00 PM CDT): A1c improved at 7.1. Continue Bydureon. BCise pen demonstrated. Continue metformin. Assessment & Plan (10/27/2017 10:03 AM ANNUAL GIVING DIRECTOR): Hba1c was 9.7 today, indicating very poor DM control 1800 calorie, consistent carb diet recommended 30 min daily aerobic and resistance exercise recommended Prevention and treatment of hyypoglcyemia discussed. Blood glucose monitoring with fingers sticks 1-2 x day . Start Victoza once a day Assessment & Plan (04/21/2017 9:33 AM CDT): Hba1c was 7.3 today, indicating Adequate DM control 1800 calorie, consistent carb diet recommended 30 min daily aerobic and resistance exercise recommended Prevention and treatment of hyypoglcyemia discussed. Blood glucose monitoring with fingers sticks 1-2 x day . Foot care was discussed. Hypothyroidism 01/14/2014 Overview (12/06/2016): HYPOTHYROIDISM NOS Assessment & Plan (04/20/2025 10:01 AM CDT): Chronic problem. Clinically & biochemically euthyroid. Currently taking levothyroxine 50mcg 6 days/wk. Aware to take 1st thing in morning, 30-60 minutes before food/drink/other medications. Will update labs. Verified that she uses [facility]. Aware to check results/results letter in [employer]. Will contact by phone if needed. Assessment & Plan (12/13/2024 10:19 AM CDT): Chronic problem. Clinically & biochemically euthyroid. Currently taking levothyroxine 50mcg 6 days/wk. Aware to take 1st thing in morning, 30-60 minutes before food/drink/other medications. Assessment & Plan (08/02/2024 10:58 AM ANNUAL GIVING DIRECTOR): Chronic problem. Currently taking levothyroxine 50mcg 6 days/wk. Clinically & biochemically euthyroid. Aware to take 1st thing in morning, 30-60 minutes before food/drink/other medications. Had labs completed 06/16/24 by PCP; will get copy of results. Assessment & Plan (02/04/2024 11:19 AM CDT): Chronic, stable Continue Levothyroxine at current dos e Assessment & Plan (10/08/2023 10:29 AM ANNUAL GIVING DIRECTOR): Chronic problem. Currently taking levothyroxine 50mcg 6 days/wk. Clinically & biochemically euthyroid. Aware to take 1st thing in morning, 30-60 minutes before food/drink/other medications. Will update TFTs today. Verified that she uses [facility]. Aware to check results/results letter in [employer]. Will contact by phone if needed. Assessment & Plan (11/28/2021 10:21 AM CDT): Thyroid function tests, including TSH and free T4 were requested Will adjust dose of Levothyroxine accordingly . If there is a need to make changes, will recheck levels in 2-3 months. Instructions to patient on taking medication properly : in the morning, on an empty stomach , 1 h part from food and/or other meds. Assessment & Plan (11/20/2020 1:07 PM CDT): Thyroid function tests, including TSH and free T4 were requested Will adjust dose of Levothyroxine accordingly . If there is a need to make changes, will recheck levels in 2-3 months. Instructions to patient on taking medication properly : in the morning, on an empty stomach , 1 h part from food and/or other meds. Assessment & Plan (10/11/2019 11:26 AM ANNUAL GIVING DIRECTOR): Will check TSH and free T4 Will adjust dose of Levothyroxine accordingly . If there is a need to make changes, will recheck levels in 2-3 months. Instructions to patient on taking medication properly : in the morning, on an empty stomach , 1 h part from food and/or other meds. Assessment & Plan (04/05/2019 11:18 AM CDT): Will get report of labs done recently Will advise if any changes to Levothyroxine are indicated. Assessment & Plan (10/07/2018 10:03 AM ANNUAL GIVING DIRECTOR): Continue levothyroxine Will get results of labs done in Jul. Assessment & Plan (07/02/2018 10:10 AM CDT): Will Check TFT's and adjust medication as indicated. Pure hyperglyceridemia 01/14/2014 Overview (12/06/2016): PURE HYPERGLYCERIDEMIA Hypertension associated with diabetes 05/24/2013 Overview (12/06/2016): HYPERTENSION NOS Assessment & Plan (04/20/2025 10:01 AM CDT): Chronic problem. Controlled on current Carvedilol 25mg bid, spironolactone-HCTZ 25-25mg daily Will update labs. Verified that she uses [facility]. Aware to check results/results letter in [employer] [facility]. Will contact by phone if needed. Assessment & Plan (12/13/2024 10:18 AM CDT): Chronic problem. Controlled on current Carvedilol 25mg bid, spironolactone-HCTZ 25-25mg daily Assessment & Plan (08/02/2024 10:58 AM ANNUAL GIVING DIRECTOR): Chronic problem. Controlled on current Carvedilol 25mg bid, losartan 25 mg daily, spironolactone-HCTZ 25-25mg daily Had labs completed 06/16/24 by PCP; will get copy of results. Assessment & Plan (10/08/2023 10:04 AM ANNUAL GIVING DIRECTOR): Chronic problem. Controlled on current Carvedilol 25mg bid, losartan 50mg daily Assessment & Plan (06/11/2023 12:58 PM CDT): Chronic, well controlled Importance of low salt diet and exercise were discussed Continue current meds including Losartan Update MA Assessment & Plan (06/12/2022 12:40 PM CDT): Chronic, well controlled Importance of low salt diet and exercise were discussed Continue current meds Assessment & Plan (11/20/2020 1:06 PM CDT): Goal blood pressure is less than 140/85 Low salt diet was discussed andd recommended The importance of daily aerobic exercise was also emphasized. Continue current meds, Check microalbumin Assessment & Plan (04/19/2020 4:41 PM CDT): Controlled on current medications. Continue plan. Assessment & Plan (10/11/2019 11:28 AM ANNUAL GIVING DIRECTOR): Goal blood pressure is less than 140/85 Low salt diet recommended Daily aerobic exercise Continue current meds, including TONY-I or ARB Assessment & Plan (07/02/2018 10:08 AM CDT): Controlled on current medications. Assessment & Plan (04/01/2018 9:52 AM CDT): Controlled on current medications. Assessment & Plan (12/31/2017 4:05 PM CDT): Controlled on current medications. Assessment & Plan (10/27/2017 10:04 AM ANNUAL GIVING DIRECTOR): Goal blood pressure is less than 140/85 Low salt diet recommended Daily aerobic exercise Continue current meds. Assessment & Plan (04/21/2017 9:43 AM CDT): Goal blood pressure is less than 140/85 Low salt diet recommended Daily aerobic exercise Resolved Problems Problem Noted Date Diagnosed Date Resolved Date Mixed hyperlipidemia 10/27/2017 022 Assessment & Plan (04/01/2018 9:52 AM CDT): At goal on current medications. Assessment & Plan (12/31/2017 4:05 PM CDT): Continue statin therapy Assessment & Plan (10/27/2017 10:00 AM ANNUAL GIVING DIRECTOR): Goal of treatment , LDL cholesterol less than 100 ( less than 70 in patients with history of heart attacks and / or strokes ) NonHDL cholesterol ( total cholesterol minus HDL cholesterol ) goal less than 130 ( less than 100 in patients with history of heart attacks and / or strokes ) Low cholesterol, low fat diet was discussed and advised. Daily exercise On statin therapy Needs exercise and lower BG to improve TG Pure hypercholesterolemia 01/14/2014 Overview (12/06/2016): PURE HYPERCHOLESTEROLEM Assessment & Plan (07/02/2018 10:09 AM CDT): Check lipid panel Assessment & Plan (04/21/2017 9:05 AM CDT): Goal of treatment , LDL cholesterol less than 100 ( less than 70 in patients with history of heart attacks and / or strokes ) NonHDL cholesterol goal less than 130 / 100 Lipids at goal. Continue statin therapy Low cholesterol diet, exercise advised. Encounters Date Type Department Care Team Description 04/20/2025 10:00 AM CDT Office Visit [facility] Diabetes and Endocrinology [address] [place] [phone] Khushboo Mendez NP Type 2 diabetes mellitus with hyperglycemia, without long-term current use of insulin (HCC) (Primary Dx); Hypertension associated with diabetes (HCC); Mixed diabetic hyperlipidemia associated with type 2 diabetes mellitus (CMS/HCC) (HCC); Diabetic polyneuropathy associated with type 2 diabetes mellitus (HCC); Acquired hypothyroidism 04/18/2025 Telephone [facility] Diabetes and Endocrinology [address] [place] [phone] Khushboo Mendez NP Lupe Nordisk PAP (Ozempic 0.5 mg) from Last 3 Months Surgical History Surgery Date Site/Laterality Comments SECTION section CHOLECYSTECTOMY Cholecystectomy CARPAL TUNNEL RELEASE TOTAL HIP ARTHROPLASTY 08/31/2013 - 08/30/2014 Left REPLACEMENT TOTAL KNEE 08/31/2021 - 08/30/2022 Formerly [facility] FLUORO GUIDED ASPIRATION OR INJECTION LARGE JOINT LEFT 01/06/2023 Left Medical History Medical History Date Comments Hyperlipidemia Hyperlipidemia Type 2 diabetes mellitus Diabete s type 2 Gout gout Hx Other Medical Claustrophobic; Comments: [facility] 07/04/2014 - Anemia Thyroid disease Hypertension Family History Medical History Relation Name Comments Heart attack Father Heart disease Father Hypertension Mother Non-Hodgkin's Lymphoma Mother Stroke Mother Breast cancer Mother's Sister Other Other No family histo ry of Diabetes mellitus; Relation Name Status Comments Father Mother Mother's Sister Other Social History Tobacco Use Types Packs/Day Years [...] on file Legal Sex Female 10:08 AM ANNUAL GIVING DIRECTOR Gender Identity Not on file Sexual Orientation Not on file Obstetrics History Para Term AB IAB SAB Ectopic Multiple Livin g Live Births 3 3 3 Date Outcome GA Total Labor Labor/2nd/3rd Weight Sex Type Anes PTL Vicky A1 A5 Name Clin Term Term Term Last Filed Vital Signs Vital Sign Reading Time Taken Comments Blood Pressure 110/84 04/20/2025 9:49 AM CDT Pulse 98 04/20/2025 9:49 AM CDT Temperature 36.8 C (98.2 F) 12/06/2022 11:21 AM CDT Respiratory Rate 18 04/20/2025 9:49 AM CDT Oxygen Saturation 91% 12/06/2022 11: 21 AM CDT Inhaled Oxygen Concentration - - Weight 108.1 kg (238 lb 4.8 oz) 04/20/2025 9:49 AM CDT Height 162.6 cm (5' 4) 04/20/2025 9:49 AM CDT Body Mass Index 40.9 04/20/2025 9:49 AM CDT Plan of Treatment Health Maintenance Due Date Last Done Comments Colon Cancer Screening-Colonoscopy 1954 Hepatitis C Screening 1954 DTaP/Tdap/Td Vaccine (1 - Tdap) 1965 Hepatitis B Screening 1972 Pneumococcal vaccine 65+ (1 of 2 - PCV) 1973 Zoster Vaccine (1 of 2) 2004 Well Visit 65+ 2019 Osteoporosis Screening-Bone Density Scan 08/07/2022 08/07/2020 Depression Screening 06/12/2023 06/12/2022, 11/28/2021, 11/20/2020, Additional history exists Fall Risk Assessment 12/07/2023 12/06/2022 Influenza Vaccine (#1) 2025 Breast Cancer Screening-Mammogram 05/24/2025 05/24/2024, 04/08/2023, 11/30/2021, Additional history exists Lipid Panel 06/17/2025 06/17/2024, 0 01/2024, 12/01/2022, Additional history exists eGFR 06/17/2025 06/17/2024, 060 01/2024, 12/05/2022, Additional history exists Albumin Creatinine Ratio, Urine 08/02/2025 08/02/2024, 06/11/2023, 11/28/2021, Additional history exists Hemoglobin A1C 10/21/2025 04/20/2025, 0412/2024, 08/02/2024, Additional history exists Foot Exam 12/13/2025 12/13/2024, 1210/2023, 06/11/2023, Additional history exists Dilated Eye Exam 10/10/2026 10/10/2024, , 09/25/2023, Additional history exists Procedures Procedure Name Priority Date/Time Associated Diagnosis Comments POCT GLUCOSE Routine 04/20/2025 9:49 AM CDT Type 2 diabetes mellitus with hyperglycemia, without long-term current use of insulin (HCC) POCT HEMOGLOBIN A1C Routine 04/20/2025 9 :49 AM CDT Type 2 diabetes mellitus with hyperglycemia, without long-term current use of insulin (HCC) HM DIABETES EYE EXAM Routine 10/10/2024 8:19 AM ANNUAL GIVING DIRECTOR ALBUMIN CREATININE RATIO, URINE Routine 08/02/2024 11:12 AM ANNUAL GIVING DIRECTOR Type 2 diabetes mellitus with hyperglycemia, without long-term current use of insulin (HCC) COMPREHENSIVE METABOLIC PANEL Routine 06/17/2024 9:56 AM CDT LIPID PANEL Routine 06/17/2024 9:56 AM CDT SCREENING MAMMOGRAM BILATERAL W ROSALINO Schedule Routine, Read Routine (OP Routine) 05/24/2024 4:26 PM CDT Screening mammogram, encounter for DEXA AXIAL SKELETON BONE DENSITY 1 OR MORE SITES Schedule Routine, Read Routine (OP Routine) 08/07/2020 11:26 AM ANNUAL GIVING DIRECTOR Encounter for gynecological examination (general) (routine) without abnormal findings from Last 3 Months or Most Recently Relevant to Health Maintenance Results * (ABNORMAL) POCT hemoglobin A1c (04/20/2025 9:49 AM CDT) Hemoglobin A1C, POC 7.0(A) 4.0 - 5.6 % Capillary blood 04/20/2025 9 :49 AM CDT Khushboo Mendez NP POINT OF CARE TEST ORDERA BLES Final Result * (ABNORMAL) POCT glucose (04/20/2025 9:49 AM CDT) Pathologist [facility] Glucose Blood, POC 206 Normal Fasting 70 - 100, Random <200 mg/dL Comment:PPG 1.5 Hrs Blood 04/20/2025 9:49 AM CDT Khushboo Mendez NP POINT OF CARE TEST ORDERA BLES Final Result * DIABETES EYE EXAM (10/10/2024 8:19 AM ANNUAL GIVING DIRECTOR) Historical Provider HEALTH MAINTENANCE Final Result * Albumin Creatinine Ratio, Urine (08/02/2024 11:12 AM ANNUAL GIVING DIRECTOR) [facility] Albumin Ur <12.0 mg/L Comment: Interpretive Data No reference range established. Current interpretive data was last revised 2019. Creatinine Ur 65.3 mg/dL BRENDAN YODER Comment: Interpretive Data No reference range established. Current interpretive data was last revised 2019. Albumin Creatinine Ratio, Ur <18 1 - 29 mg/g BRENDAN YODER Urine 08/02/2024 11:1 2 AM ANNUAL GIVING DIRECTOR 08/02/2024 5:37 PM ANNUAL GIVING DIRECTOR Khushboo Mendez NP LAB URINE ORDERABLES Eri l Result BRENDAN [id number] [address] Department [place] [address] * (ABNORMAL) Lipid panel (06/17/2024 9:56 AM CDT) [facility] SCRIBED Cholesterol, Total 155 <200 - NA [facility] SCRIBED HDL 42 >=50 - NA [facility] SCRIBED LDL 82 <100 - NA [facility] SCR[facility] Triglycerides 223 <150 - NA [facility] Blood 06/17/2024 9:56 AM CDT Historical Provider LAB BLOOD ORDERABLES Edit ed Result - Final [facility] * (ABNORMAL) Comprehensive metabolic panel (06/17/2024 9:56 AM CDT) [facility] Sodium 134(A) 135 - 146 mmol/L [facility] Potassium 4.8 3.5 - 5.3 mmol/L [facility] Chloride 96(A) 98 - 110 mmol/L [facility] Carbon Dioxide 28 20 - 32 mmol/L [facility] Urea Nitrogen (BUN) 29(A) 7 - 25 mg/dl [facility] Creatinine 1.37(A) 0.50 - 1.05 mg/dl [facility] Glucose 146(A) 65 - 99 mg/dl [facility] Calcium 9.9 8.6 - 10.4 mg/dl [facility] Bilirubin 0.6 0.2 - 1.2 mg/dl [facility] Plasma Protein 7.1 6.1 - 8.1 g/dl [facility] Albumin 4.4 3.6 - 5.1 g/dl [facility] Alkaline Phosphatase 72 37 - 153 Units/L [facility] Alanine Transaminase (ALT) 17 6 - 29 Units/L [facility] Aspartate Transaminase (AST) 15 10 - 35 Units/L [facility] SCR[facility] eGFR in NonAfrican Chilean 42 >=60 - NA [facility] Blood 06/17/2024 9:56 AM CDT us Historical Provider LAB BLOOD ORDERABLES Edit ed Result - Final [facility] * Screening Mammogram Bilateral W Rosalino (05/24/2024 4:26 PM CDT) Anatomical Region Laterality Modality Breast Bilateral Mammography 05/25/2024 8:13 AM CDT Impressions 05/25/2024 8:13 AM CDT There is no mammographic evidence of malignancy. A 1 year screening mammogram is recommended. BI-RADS: 1 - Negative. The patient has been or will be contacted. The patient will be entered into a reminder system with a target due date of 1 year for her next mammogram. Electronically signed by: JOSE ANTONIO LUZIRIS Gu 05/25/2024 8:13 AM CDT EXAMINATION: SCREENING MAMMOGRAM BILATERAL W ROSALINO ORDERING HEALTHCARE PROVIDER: SELF SCREENING MAMMOGRAM HISTORY: Routine screening mammography. COMPARISON: 04/08/2023, 11/30/2021, 08/07/2020, 06/25/2019. TECHNIQUE: CC and MLO views of both breasts were obtained with digital technique using digital breast tomosynthesis with C view. Computer aided detection was utilized. FINDINGS: DENSITY: The breasts are almost entirely fatty. BREASTS: There is no new suspicious finding in either breast on mammogram. us Self Screening Mammogram IMG MAMMO PROCEDURES Fi nal Result * Dexa Axial Skeleton Bone Density 1 or 2 Site (08/07/2020 11:26 AM ANNUAL GIVING DIRECTOR) Anatomical Region Laterality Modality Body N/A Other 08/07/2020 12:0 1 PM ANNUAL GIVING DIRECTOR Impressions 08/07/2020 12:03 PM ANNUAL GIVING DIRECTOR According to the World Health Organization criteria, based upon the total right forearm bone mineral density (T score value of -0.1), the patient has normal bone mineralization. General Recommendations: 1. Consider an evaluation for secondary causes of osteoporosis in patients with low bone density. 2. All patients should be counseled on adequate intake of calcium (1200 mg/day), vitamin D (600-800 IU daily) and exercise. 3. The National Osteoporosis Foundation (NOF) guidelines recommend initiating pharmacological therapy, in addition to calcium, vitamin D and exercise, to reduce fracture risk when: a. T-score less than or equal to -2.5 after secondary causes excluded. b. T-score between -1.0 and -2.5 with secondary causes associated with high risk of fracture. c. 10-year probability of hip fracture more than or equal to 3% (based on FRAX score). d. 10-year probability of major osteoporosis related fracture more than or equal to 20% (based on FRAX score). Followup: People with diagnosed cases of osteoporosis or at high risk for fracture should have regular bone mineral density tests. For patients eligible for Medicare, routine testing is allowed once every 2 years. The testing frequency can be increased to one year for patients who have rapidly progressive disease or those who are receiving long-term steroid therapy. Electronically signed by: Tiffany Proctor MD Narrative 08/07/2020 12:03 PM ANNUAL GIVING DIRECTOR COMPLETION DATE: 08/07/2020 11:30 AM ORDERING HEALTHCARE PROVIDER: LESLIE RUBIO STUDY DESCRIPTION: DEXA AXIAL SKELETON BONE DENSITY 1 OR MORE SITES CLINICAL INDICATIONS: History of bilateral hip replacements. Postmenopausal female. COMPARISON: None TECHNIQUE: Dual x-ray absorptiometry (DEXA) was performed using Platfora system. GENERAL GUIDELINES: According to WHO guidelines, a T score of -1.0 or greater is normal, between -1.0 to -2.4 is osteopenia, and -2.5 or less is osteoporosis. Z score (instead of T score) is preferred for pediatric, young adults, premenopausal women and men under age of 50 years. In these patients, a Z score greater than or equal to -2.0 is considered to be in the expected range. FINDINGS: RIGHT forearm one third: T-score 0.0 Total right forearm: T-score -0.1 LUMBAR SPINE: T-score 1.6 A FRAX score based upon a DXA study is not reported unless all of the following criteria are met. The patient: a. Is an untreated postmenopausal woman or a man age 50 or older. b. Has low bone mass (T-score between -1.0 and -2.5). c. Has no prior hip or vertebral fracture (clinical or morphometric). d. Has an evaluable hip for DXA study. Procedure Note Tiffany Proctor MD - 08/07/2020 COMPLETION DATE: 08/07/2020 11:30 AM ORDERING HEALTHCARE PROVIDER: LESLIE RUBIO STUDY DESCRIPTION: DEXA AXIAL SKELETON BONE DENSITY 1 OR MORE SITES CLINICAL INDICATIONS: History of bilateral hip replacements. Postmenopausal female. COMPARISON: None TECHNIQUE: Dual x-ray absorptiometry (DEXA) was performed using Platfora system. GENERAL GUIDELINES: According to WHO guidelines, a T score of -1.0 or greater is normal, between -1.0 to -2.4 is osteopenia, and -2.5 or less is osteoporosis. Z score (instead of T score) is preferred for pediatric, young adults, premenopausal women and men under age of 50 years. In these patients, a Z score greater than or equal to -2.0 is considered to be in the expected range. FINDINGS: RIGHT forearm one third: T-score 0.0 Total right forearm: T-score -0.1 LUMBAR SPINE: T-score 1.6 A FRAX score based upon a DXA study is not reported unless all of the following criteria are met. The patient: a. Is an untreated postmenopausal woman or a man age 50 or older. b. Has low bone mass (T-score between -1.0 and -2.5). c. Has no prior hip or vertebral fracture (clinical or morphometric). d. Has an evaluable hip for DXA study. IMPRESSION: According to the World Health Organization criteria, based upon the total right forearm bone mineral density (T score value of -0.1), the patient has normal bone mineralization. General Recommendations: 1. Consider an evaluation for secondary causes of osteoporosis in patients with low bone density. 2. All patients should be counseled on adequate intake of calcium (1200 mg/day), vitamin D (600-800 IU daily) and exercise. 3. The National Osteoporosis Foundation (NOF) guidelines recommend initiating pharmacological therapy, in addition to calcium, vitamin D and exercise, to reduce fracture risk when: a. T-score less than or equal to -2.5 after secondary causes excluded. b. T-score between -1.0 and -2.5 with secondary causes associated with high risk of fracture. c. 10-year probability of hip fracture more than or equal to 3% (based on FRAX score). d. 10-year probability of major osteoporosis related fracture more than or equal to 20% (based on FRAX score). Followup: People with diagnosed cases of osteoporosis or at high risk for fracture should have regular bone mineral density tests. For patients eligible for Medicare, routine testing is allowed once every 2 years. The testing frequency can be increased to one year for patients who have rapidly progressive disease or those who are receiving long-term steroid therapy. Electronically signed by: Tiffany Proctor MD Leslie Rubio MD IMG DXA PROCEDURES Final R esult from Last 3 Months or Most Recently Relevant to Health Maintenance Insurance MEDICARE [facility] SENIOR SUPPLEMENT MEDICARE AET SENIOR SUPPLEMENT Advance Directives For more information, please contact: [phone] * Full Code (Latest Code Status on File) Date Activated Date Inactivated Comments 12/01/2022 2:13 AM 12/06/2022 7:28 PM Care Teams Cash Processing Specialist Relationship Specialty Start Date End Date Jordan Toth MD PCP - General 11/28/16 [place] [address] [address] Consulting Physician Endocrinology Diabetes & Metabolism 04/05/19 [place] [id number] [address] [address] Referring Physician Nephrology 04/05/19 [place] [id number] [address] [address] Ophthalmology 04/05/19
--- OUTSIDE RECORDS SUMMARY | 2025-04-21 08:00 | XMS_ITS | Clinical Summary ---
Author Organization [facility] Address [address] [place] [address] Phone Care Team Providers Care Audio Video Mechanic Name Role Phone Jordan Toth MD Primary Care Provider [phone] Allergies Active Allergy Reactions Criticality Noted Date Comments Allopurinol 02/13/2019 Cyclobenzaprine 02/13/2019 Lisinopril 02/13/2019 Meloxicam 02/13/2019 Metaxalone 02/13/2019 Pantoprazole 02/13/2019 Statins 02/13/2019 Medications carvedilol (COREG) 25 MG tablet Take 25 mg by mouth 2 (two) times a day with meals. Active traMADol (ULTRAM) 50 MG tablet Take 50 mg by mouth every 6 (six) hours if needed for moderate pain. Active levothyroxine sodium (TIROSINT) 50 MCG capsule Take 50 mcg by mouth 1 (one) time each day. Active aspirin 81 MG chewable tablet Chew 81 mg 1 (one) time each day. Active metFORMIN (GLUCOPHAGE) 500 MG tablet Take 1,000 mg by mouth 2 (two) times a day with meals. Active Exenatide ER (BYDUREON) 2 MG pen-injector Inject under the skin. Active Turmeric 500 MG tablet Take 750 mg by mouth. Active cyanocobalamin (VITAMIN B-12) 1000 MCG tablet Take 1,000 mcg by mouth 1 (one) time each day. Active glucose blood test strip 1 each by Other route if needed. Use as instructed Active glucosamine-cho ndroitin 500-400 MG tablet Take 1 tablet by mouth 3 (three) times a day. Active aMILoride (MIDAMOR) 5 MG tablet Take 5 mg by mouth 5 (five) times a week. Active ONETOUCH DELICA LANCETS 33G misc Use to test blood sugars 3 times a day 8 Active magnesium oxide (MAG-OX) 400 mg tablet 800 mg 3 (three) times a day Active allopurinol (ZYLOPRIM) 100 MG tablet Take 100 mg by mouth Active atorvastatin (LIPITOR) 20 MG tablet Take 20 mg by mouth Active ferrous sulfate 325 (65 Fe) MG tablet take 1 tablet by oral route every day 7 Active Glucosamine-Cho ndroit-Vit C-Mn (GLUCOSAMINE-CH ONDROITIN) capsule take 1 capsule by oral route every day 7 Active pregabalin (LYRICA) 100 MG capsule Take 100 mg by mouth 1 (one) time each day Active Active Problems Problem Noted Date Diagnosed Date Nonspecific abnormal results of function study o f kidney 03/17/2019 Hypomagnesemia 02/17/2019 Diabetic dyslipidemia associ ated with type 2 diabetes mellitus 10/07/2018 Overview (03/12/2019): Last Assessment & Plan: Goal of treatment , LDL cholesterol less [...] and advised. Daily exercise On statin therapy Type 2 diabetes mellitus 01/24/2014 Overview (03/12/2019): Overview: DMII WO CMP NT ST UNCNTR Last Assessment & Plan: Hba1c was Lab Results Component Value Date HGBA1C 6.8 10/07/2018 today, indicating adequate DM control 1800 calorie, consistent carb diet recommended 25-45 min daily aerobic and resistance exercise recommended Prevention and treatment of hyypoglcyemia discussed. Blood glucose monitoring with fingers sticks 1-2 x day . Oral medications: continue Metformin and Bydureon Pure hypercholesterolemia 01/14/2014 Overview (03/12/2019): Overview: PURE HYPERCHOLESTEROLEM Last Assessment & Plan: Check lipid panel Hypothyroidism 01/14/2014 Overview (03/12/2019): Overview: HYPOTHYROIDISM NOS Last Assessment & Plan: Continue levothyroxine Will get results of labs done in Jul. Hypertension 05/24/2013 Overview (03/12/2019): Overview: HYPERTENSION NOS Last Assessment & Plan: Controlled on current medications. Immunizations Immunization Administration Dates Next Due Influenza TIV (IM) 05/31/2020,07/01/2019 Pneumococcal Conjugate 05/01/2017 Family History Medical History Relation Comments Heart disease Brother Heart attack Father Cancer Mother Hypomagnesemia Neg Hx Relation Status Comments Brother Father Mother Social History Tobacco Use Types Packs/Day Years Used Date Smoking Tobacco: Former Smokeless Tobacco: Never Alcohol Use Standard Drinks/Week Comments Yes 0 (1 standard drink = 0.6 oz pur e alcohol) AUDIT-C Answer Date Recorded Frequency of Alcohol Consumption 2-3 times a wee k 02/17/2019 Average Number of Drinks Not on file 019 Frequency of Binge Drinking Not on file 01/30 Comments Unknown Sex and Gender Information Value Date Recorded Sex Assigned at Not on file Legal Sex Female 10:27 AM MDT Gender Identity Not on file Sexual Orientation Not on file Last Filed Vital Signs Vital Sign Reading Time Taken Comments Blood Pressure 116/82 03/06/2021 10:33 AM CDT Pulse 60 03/06/2021 10:33 AM CDT Temperature 35.9 C (96.6 F) 03/06/2021 10:33 AM CDT Respiratory Rate - - Oxygen Saturation - - Inhaled Oxygen Concentration - - Weight 100 kg (221 lb) 03/06/2021 10:33 AM CDT Height 167.6 cm (5' 6) 03/06/2021 10:33 AM CDT Body Mass Index 35.67 03/06/2021 10:33 AM CDT Plan of Treatment Health Maintenance Due Date Last Done Comments Pneumococcal PPSV23/PCV13 65 + Years / Low and Medium Risk (1 of 2 - PCV) 2004 Influenza Vaccine (#1) 2025 05/31/2020, 2018 Insurance MEDICARE [employer] [facility] MEDICARE [place] [address] Care Teams Audio Video Mechanic Relationship Specialty Start Date End Date Jordan Toth MD [address] [place] [address] PCP - General Internal Medicine 01/10/19
--- OUTSIDE RECORDS SUMMARY | 2025-04-21 08:00 | XMS_ITS | Clinical Summary ---
Author Organization [facility] Address [address] [address] Phone Care Team Providers Care [employer] Coordinator Name Role Phone Jordan Toth MD Primary Care Provider [phone] Allergies No known active allergies Medications aspirin EC (ASPIRIN 81) 81 MG Tablet Delayed Response 81 mg. 10/30/2015 Active carvedilol (COREG) 25 MG Tablet Take 25 mg by mouth. 10/01/2017 Active cyanocobalamin 1000 MCG Tablet Take 1,000 mcg by mouth. Active ferrous sulfate 325 (65 Fe) MG Tablet take 1 tablet by oral route every day 10/02/2016 Active ONETOUCH DELICA LANCETS 33G Misc Use to test blood sugars 3 times a day 04/05/2019 Active levothyroxine (SYNTHROID) 50 MCG Tablet TAKE ONE TABLET BY MOUTH DAILY 06/13/2019 Active Magnesium 400 MG Tablet 800 mg. Active metFORMIN (GLUCOPHAGE) 500 MG Tablet Take 1,000 mg by mouth. Active traMADol (ULTRAM) 50 MG Tablet 50 mg. 01/09/2015 Active Turmeric 500 MG Tablet Take 750 mg by mouth. Active Glucosamine-Cho ndroit-Vit C-Mn (GLUCOSAMINE-CH ONDROITIN) Capsule take 1 capsule by oral route every day 10/02/2016 Active Glucose Blood Strip 1 Each by Other route. Active Exenatide ER (BYDUREON BCISE) 2 MG/0.85ML Auto-injector INJECT 2 MG UNDER THE SKIN EVERY SEVEN DAYS DIRECTED 12/13/2018 Active atorvastatin (LIPITOR) 20 MG Tablet Take 20 mg by mouth daily. Active allopurinol (ZYLOPRIM) 100 MG Tablet Take 100 mg by mouth daily. Active hyoscyamine (ANASPAZ, LEVSIN) 0.125 MG Tablet TAKE ONE TABLET BY MOUTH TWICE A DAY 60 Tab 3 10/25/2019 Active Family History Medical History Relation Name Comments Heart Attack Father Hypertension Mother Leukemia/Lymphoma Mother Uterine Cancer Mother Relation Name Status Comments Father Mother Social History Tobacco Use Types Packs/Day Years Used Date Smoking Tobacco: Former Cigarettes 0.3 2 1 977 - 1978 Smokeless Tobacco: Never Tobacco Cessation:Counseling Given: No Alcohol Use Standard Drinks/Week Comments Yes 0 (1 standard drink = 0.6 oz pur e alcohol) on occasion Comments No Sex and Gender Information Value Date Recorded Sex Assigned at Not on file Legal Sex Female 7:39 PM CDT Gender Identity Not on file Sexual Orientation Not on file Occupation Industry Job Start Date Job End Date teacher Not on file Not on file Not on file Last Filed Vital Signs Vital Sign Reading Time Taken Comments Blood Pressure 108/76 10/04/2019 1:48 PM [employer] Pulse 87 10/04/2019 1:48 PM [employer] Temperature 36.8 C (98.2 F) 10/04/2019 1:48 PM [employer] Respiratory Rate 16 10/04/2019 1:48 PM [employer] Oxygen Saturation 98% 10/04/2019 1:48 PM [employer] Inhaled Oxygen Concentration - - Weight 112.5 kg (248 lb) 10/04/2019 1:48 PM [employer] Height 167.6 cm (5' 6) 10/04/2019 1:48 PM [employer] Body Mass Index 40.03 10/04/2019 1:48 PM [employer] Plan of Treatment Health Maintenance Due Date Last Done Comments Hepatitis C Virus (HCV) Screening 1955 TdaP Immunization 1955 Cologuard 1999 Immunochemical Fecal Occult Blood 1999 Pneumococcal Immunization (50+ years) (1 of 1 - PCV) 2004 Zoster Immunization (1 of 2) 2004 Colonoscopy 10/13/2022 10/13/2019 Colorectal Cancer Screening 10/13/2022 SARS-COV-2 Immunization ( season) 2024 06/29/2021, 12/31/2020, 10/13/2020, Additional history exists Influenza Immunization (#1) 2025 Respiratory Syncytial Virus (RSV) Immunization (Adult) (1 - 1-dose 75+ series) 2029 Hepatitis B Immunization Aged Out No longer eligible based on patient's age to complete this topic Human Papillomavirus (HPV) Immunization Aged Out No longer eligible based on patient's age to complete this topic Meningococcal Immunization (ACWY) Aged Out No longer eligible based on patient's age to complete this topic Rotavirus Immunization Aged Out No lo nger eligible based on patient's age to complete this topic Procedures Procedure Name Priority Date/Time Associated Diagnosis Comments COLONOSCOPY Routine 10/13/2019 from Last 3 Months or Most Recently Relevant to Health Maintenance Results * COLONOSCOPY (10/13/2019) Miki Stephenson DO PROCEDURE/MINOR SURGICAL ORDERA BLES Final Result from Last 3 Months or Most Recently Relevant to Health Maintenance Insurance MEDICARE COMMERCIAL GENERIC Care Teams [employer] Program Coordinator Relationship Specialty Start Date End Date Jordan Toth MD [address] [place] [address] PCP - General Internal Medicine 10/04/19
--- OUTSIDE RECORDS SUMMARY | 2025-04-21 08:00 | XMS_ITS | Encounter Summary ---
Author Organization [facility] Address [address] [place] [address] Care Team Providers Care [employer] Name Role Phone Jordan Toth MD Primary Care Provider [phone] Lakesha Dover MD Unavailable Thang Garcia MD Unavailable [phone] Miki Zheng OD Unavailable [phone] Encounter Details Date Type Department Care Team (Late st Contact Info) Description 01/02/2023 Telephone [facility] [address] [place] [id number] Josias Nathan, RT Social History Tobacco Use Types Packs/Day Years [...] on file 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 Gender Identity Not on file Sexual Orientation Not on file documented as of this encounter Plan of Treatment Not on file documented as of this encounter Visit Diagnoses Not on filedocumented in this encounter Care Teams [employer] Relationship Specialty Start Date End Date Jordan Toth MD PCP - General 11/28/16 [place] [address] [address] Consulting Physician Endocrinology Diabetes & Metabolism 04/05/19 [place] [address] [id number] Referring Physician Nephrology 04/05/19 Miki Zheng, JOHNNIE [address] [address] Ophthalmology 04/05/19 documented as of this encounter
--- OUTSIDE RECORDS SUMMARY | 2025-04-21 08:00 | XMS_ITS | Encounter Summary ---
Author Organization [facility] Healthcare Address [address] [place] [address] Care Team Providers Care Teacher Visually Impaired Name Role Phone Jordan Toth MD Primary Care Provider [phone] Lakesha Dover MD Unavailable Thang Garcia MD Unavailable [phone] Miki Zheng OD Unavailable [phone] Reason for Visit * Reason Onset Date Comments Lupe Nordisk PAP 04/18/2025 Ozempic 0.5 mg Encounter Details Date Type Department Care Team (Late st Contact Info) Description 04/18/2025 Telephone [facility] Diabetes and Endocrinology [address] [place] [phone] Khushboo Mendez, CHEMICAL TEST ENGINEER [id number] [facility] [address] [place] [address] Lupe Nordisk PAP (Ozempic 0.5 mg) Social History Tobacco Use Types Packs/Day Years [...] on file 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 Gender Identity Not on file Sexual Orientation Not on file documented as of this encounter Ordered Prescriptions Prescription Sig Dispense Quantity Refills Last Filled Start Date End Date semaglutide (OZEMPIC) 0.25 mg or 0.5 mg (2 mg/3 mL) pen injector injectionIndication s:Type 2 diabetes mellitus with hyperglycemia, without long-term current use of insulin (HCC) Inject 0.5 mg under the skin once a week 04/18/2025 documented in this encounter Miscellaneous Notes * Telephone Encounter - Esther Varela MA - 04/20/2025 10:00 AM CDT Pt presented to her Office Visit and Ozempic 0.5 mg from PAP given to PT. 4 Boxes Ozempic 0.5 mg, Lot [id number], Exp: 08/31/2027 * Telephone Encounter - Esther Varela MA - 04/18/2025 11:46 AM CDT Lupe Nordisk PAP with Ozempic 0.5 mg arrived. Tried to contact Pt no answer. LVM informing PT her PAP arrived and it is ready for pickup. 4 Boxes Ozempic 0.5 mg, Lot [id number], Exp: 08/31/2027 documented in this encounter Plan of Treatment Not on file documented as of this encounter Visit Diagnoses Diagnosis Type 2 diabetes mellitus with hyperglycemia, without long-term current use of insulin (HCC)- Primary documented in this encounter Discontinued Medications Medication Sig Discontinue Reason Start Date End Da te semaglutide 0.25 mg or 0.5 mg (2 mg/3 mL) pen injector injection Inject 0.5 mg under the skin once a week Duplicate order 09/06/2024 04/18/2025 Ozempic 0.25 mg or 0.5 mg(2 mg/1.5 mL) pen injector injection Inject 0.5 mg under the skin once a week Duplicate order 09/20/2024 04/18/2025 semaglutide (Ozempic) 0.25 mg or 0.5 mg(2 mg/1.5 mL) pen injector injection Inject 0.5 mg under the skin once a week Duplicate order 12/28/2024 04/18/2025 documented as of this encounter Care Teams Teacher Visually Impaired Relationship Specialty Start Date End Date Jordan Toth MD PCP - General 11/28/16 [place] [address] [address] [facility] [address], [place] [id number] Consulting Physician Endocrinology Diabetes & Metabolism 04/05/19 [place] [address] [address] Referring Physician Nephrology 04/05/19 [place] [address] [address] [facility] [address] [place] [address] Ophthalmology 04/05/19 documented as of this encounter
[2025-04-21 08:53] LABS: Alanine Aminotransferase 27 U/L (6-35); Albumin Level 4.8 g/dL (3.5-5.1); Alkaline Phosphatase 63 U/L (38-126); Anion Gap 9 mmol/L (4-12); Aspartate Amino Transferase 29 U/L (14-36); Bilirubin,Total 0.6 mg/dL (0.2-1.3); Blood Urea Nitrogen 31 mg/dL (7-17); Calcium 10.7 mg/dL (8.4-10.2); Carbon Dioxide 28 mmol/L (22-30); Chloride 103 mmol/L (98-107); Cholesterol 193 mg/dL (0-200); Estimated Glomerular Filt Rate 38; Glucose 151 mg/dL (65-110); HDL Direct 50 mg/dL; Osmolality Calculated 299 mOsm/kg (285-295); Potassium 5.2 mmol/L (3.4-5.0); Sodium 140 mmol/L (137-145); Total Protein 7.7 g/dL (6.3-8.2); Triglycerides 283 mg/dL (<150)
[2025-04-21 09:10] LABS: Free T4 Free Thyroxine 1.14 ng/dL (0.78-2.19)
[2025-04-21 09:25] LABS: Thyroid Stimulating Hormone 1.370 uIU/mL (0.465-4.680)
[2025-04-21 09:41] LABS: MALB Creatinine Ratio 7.8 mg/g (0-30)
== END 2025-04-21 07:55 | disposition home or self-care (01) ==
LOC: CHSLAB 07:58
PROVIDERS: PCP Internal Medicine; Visit Provider Nurse Practitioner Family
DX: E11.65 Type 2 diabetes mellitus with hyperglycemia (principal); E11.69 Type 2 diabetes mellitus with other specified complication; E78.2 Mixed hyperlipidemia; E11.59 Type 2 diabetes mellitus with other circulatory complications; I15.2 Hypertension secondary to endocrine disorders
CPT/HCPCS: 36415; 80053; 80061; 82043; 84439; 84443

== ENCOUNTER 2025-05-31 12:59 | Outpatient (RCR) | payer MEDICARE, SELFPAY ==
--- NOTE | 2025-05-31 13:58 | OPREHPOC ---
Outpatient Therapy Plan of Care This is a Multidisciplinary Plan of Care that may contain components documented by all disciplines (PT, OT, and ST.) PT Problem 1 PT Problem #1 Knowledge Deficit PT Goal 1 Goal / Goal Update The patient will be independent in a home exercise program. Target Visit 2 PT Problem 2 PT Problem #2 Impaired Range of Motion PT Goal 1 Goal / Goal Update The patient will demonstrate left knee flexion AROM of 110 degrees to improve stair negotiation. Target Visit 10 PT Problem 3 PT Problem #3 Impaired Functional Mobility PT Goal 1 Goal / Goal Update The patient will demonstrate 20% or less self perceived disability per the LEFS questionnaire. Target Visit 10 PT Problem 4 PT Problem #4 Impaired Strength PT Goal 1 Goal / Goal Update The patient will demonstrate 4/5 left knee flexion and extension strength to improve ability to navigate stairs. Target Visit 10
--- NOTE | 2025-05-31 13:58 | PTOPEVAL1 ---
Assessment and note entered by Reshma Aranda, PT Evaluation Information Assessment Status Evaluation Diagnosis L knee OA ICD-10 Condition Codes (PT) Pain in left knee M25.562 Onset 05/22/25 Subjective Information Airam Dela Cruz reports she has been receiving injections in her left knee and just received 4 out of 5. She is not noticing any pain relief this time. She feels she will need to have the knee replaced soon. She has had her right knee replaced in the past. She is noting left knee pain on the inner side that increases when she has her left knee straight for a long period. She is having difficulty squatting, stairs (especially going down), and prolonged standing. She has not been using an AD but has one ready if she needs it. Reported Pain Level Pain Score 4: Self Report Assessment PT Clinical Summary Airam Dela Cruz presents with left knee pain due to OA. She has been getting injections to control pain and delay a knee replacement but she does not think they are work. She has difficulty squatting , with prolonged standing, with stair negotiation, and when she leaves her left knee extended for long periods. She demonstrates tenderness along her left medial knee joint line, decreased left knee flexion AROM, decreased left knee and hip strength, impaired gait, and decreased endurance. She will benefit from skilled PT to address these limitations and decrease pain with daily activities. Plan of Care Interventions Electrical Stimulation,Gait Training,Hot Pack/Cold Pack,Intermittent Compression Pump,Manual Therapy ,Neuro Re-education,Patient/Caregiver Education, Therapeutic Activities,Therapeutic Exercise,Self- Care/Home Management,Ultrasound PT Services Indicated Yes Treatment Frequency and 2 times a week for 16 visits Duration These treatments will address the objective and functional deficits as defined above. The patient will be advanced safely and appropriately in order for the patient to progress towards his/her prior level of function. Additional exercises will be introduced and as well as a comprehensive home exercise program upon discharge, if needed, ?to ensure carryover of functional gains achieved in the clinic. This treatment plan has been reviewed and agreement upon by the patient.
--- NOTE | 2025-07-05 14:52 | OPREHPOC ---
Outpatient Therapy Plan of Care This is a Multidisciplinary Plan of Care that may contain components documented by all disciplines (PT, OT, and ST.) PT Problem 1 PT Problem #1 Knowledge Deficit PT Goal 1 Goal / Goal Update The patient will be independent in a home exercise program. Target Visit 2 Progress Met PT Problem 2 PT Problem #2 Impaired Range of Motion PT Goal 1 Goal / Goal Update The patient will demonstrate left knee flexion AROM of 110 degrees to improve stair negotiation. Target Visit 10 Progress Partially Met PT Problem 3 PT Problem #3 Impaired Functional Mobility PT Goal 1 Goal / Goal Update The patient will demonstrate 20% or less self perceived disability per the LEFS questionnaire. Target Visit 10 Progress Not Met PT Problem 4 PT Problem #4 Impaired Strength PT Goal 1 Goal / Goal Update The patient will demonstrate 4/5 left knee flexion and extension strength to improve ability to navigate stairs. Target Visit 10 Progress Met
--- NOTE | 2025-07-05 14:52 | PTOPDC ---
Assessment and note entered by Reshma Aranda, PT Evaluation Information Assessment Status Discharge Diagnosis L knee OA ICD-10 Condition Codes (PT) Pain in left knee M25.562 Onset 05/22/25 Subjective Information Airam Dela Cruz reports left knee is doing better overall. She notes she can walk pain free most of the time and she is not taking pain medication. She does take stairs one at a time and uses the rail due to pain and weakness in the left knee. She feels she is doing well enough to continue on her own until she sees the nail specialist on 07/26/25. She feels she will eventually need the knee replaced. Reported Pain Level Pain Score 0: Self Report Assessment PT Clinical Summary Airam Dela Cruz has completed 10 skilled PT visits for left knee pain due to OA. She reports her knee is feeling better overall. She still gets occasional pain and has to take stairs one at a time but walking is mostly pain free. She demonstrates improved knee flexion AROM, improved knee and hip strength, improved gait, and less self perceived disability. She has met most of her goals and will be discharged. Plan of Care PT Services Indicated No
== END 2025-07-05 20:00 | disposition home or self-care (01) ==
LOC: CHSPT 12:59
PROVIDERS: Visit Provider Nurse Practitioner Family
DX: M17.12 Unilateral primary osteoarthritis, left knee (principal); M25.562 Pain in left knee
CPT/HCPCS: 97014; 97110; 97161; 97530; G0283